=== PATIENT | female | born 1975 | race Caucasian/White ===

== ENCOUNTER 2018-03-20 10:25 | Emergency (ER) | payer OTHER ==
[2018-03-20 10:30] VITALS: RESP 18
[2018-03-20] MEDS ORDERED: SODIUM CHLORIDE 0.9% 1,000 ML IV STA (10:54)
[2018-03-20] MEDS ORDERED: ONDANSETRON 4 MG/2 ML VIAL IVP STA (10:54)
[2018-03-20] MEDS ORDERED: MORPHINE SULFATE 4 MG/ML SYRINGE IV STA ×2 (10:54→12:57)
--- NOTE | 2018-03-20 11:04 | ED ---
General Adult HPI - General Chief complaint: Abdominal Pain Stated complaint: poss kidney stone Time Seen by Provider: 03/20/18 10:34 Source: patient, RN notes reviewed Mode of arrival: wheelchair Limitations: no limitations - History of Present Illness Initial comments: Patient 42-year-old female presented to the emergency room today with a chief complaint of right flank pain over the last 4 days. Patient does admit the pain increased last night. Has not been able to void since 8 PM last night. Experiencing pain in the right flank radiating around to the right side of the abdomen. Patient denies any recent fever, chills, shortness of breath, chest pain, numbness or tingling, dysuria or hematuria, constipation or diarrhea, headaches or visual changes, or any other complaints. - Related Data Previous Rx's Medication Instructions Recorded Hydrocodone/Acetaminophen [[place] 1 each PO Q6HR PRN #12 tab 03/20/18 5-325] Ibuprofen [Motrin] 600 mg PO Q6HR PRN #40 day 03/20/18 Sulfamethox-Tmp 800-160Mg [Bactrim 1 tab PO Q12HR #20 tab 03/20/18 DS 800-160 mg] Tamsulosin [Flomax] 0.4 mg PO DAILY #10 cap 03/20/18 Allergies Allergy/AdvReac Type Severity Reaction Status Date / Time Penicillins Allergy Anaphylaxis Verified 03/20/18 10:30 Review of Systems ROS Statement: Those systems with pertinent positive or pertinent negative responses have been documented in the HPI. ROS Other: All systems not noted in ROS Statement are negative. Past Medical History Past Medical History: Asthma History of Any Multi-Drug Resistant Organisms: None Reported Past Surgical History: No Surgical Hx Reported Past Psychological History: No Psychological Hx Reported Smoking Status: Current every day smoker Past Alcohol Use History: None Reported Past Drug Use History: Marijuana General Exam - General Exam Comments Initial Comments: General: The patient is awake and alert, in mild distress. Eye: Pupils are equal, round and reactive to light, extra-ocular movements are intact. No nystagmus. There is normal conjunctiva bilaterally. No signs of icterus. Ears, nose, mouth and throat: There are moist mucous membranes and no oral lesions. Neck: The neck is supple, there is no tenderness or JVD. Cardiovascular: There is a regular rate and rhythm. No murmur, rub or gallop is appreciated. Respiratory: Lungs are clear to auscultation, respirations are non-labored, breath sounds are equal. No wheezes, stridor, rales, or rhonchi. Gastrointestinal: Abdomen soft on palpation. Mild tenderness diffusely throughout the lower quadrants. Right-sided CVA tenderness. No rebound or guarding. Musculoskeletal: Normal ROM, no tenderness. Sensation intact. Neurological: A&O x 3. CN II-XII intact, There are no obvious motor or sensory deficits. Coordination appears grossly intact. Speech is normal. Skin: Skin is warm and dry and no rashes or lesions are noted. Psychiatric: Cooperative, appropriate mood & affect, normal judgment. Limitations: no limitations Course Vital Signs 03/20/18 03/20/18 03/20/18 10:26 12:23 14:26 Temperature 98.3 F Pulse Rate 96 71 64 Respiratory 18 18 18 Rate Blood Pressure 132/87 133/64 124/79 O2 Sat by Pulse 98 96 97 Oximetry Medical Decision Making - Medical Decision Making Patient's CT the abdomen and pelvis does show a 3 mm stone on the right side. Patient's urinalysis shows a greater than 182 white cells with 7 red. Patient given dose Rocephin here in emergency room. Patient clinically looking well at this time. No fever. No elevated white count. Patient will be discharged home continue on antibiotics, Flomax, pain medication for her symptoms. Advised following up urologist over the next 2 days return if any symptoms increase worsen. - Lab Data Result diagrams: 03/20/18 11:20 03/20/18 11:20 Lab Results 03/20/18 03/20/18 03/20/18 Range/Units 11:20 11:20 11:20 WBC 9.4 (3.8-10.6) k/uL RBC 4.92 (3.80-5.40) m/uL Hgb 14.6 (11.4-16.0) gm/dL Hct 45.9 (34.0-46.0) % MCV 93.3 (80.0-100.0) fL MCH 29.6 (25.0-35.0) pg MCHC 31.7 (31.0-37.0) g/dL RDW 13.5 (11.5-15.5) % Plt Count 215 (150-450) k/uL Neutrophils % 69 % Lymphocytes % 17 % Monocytes % 8 % Eosinophils % 1 % Basophils % 1 % Neutrophils # 6.4 (1.3-7.7) k/uL Lymphocytes # 1.6 (1.0-4.8) k/uL Monocytes # 0.7 (0-1.0) k/uL Eosinophils # 0.1 (0-0.7) k/uL Basophils # 0.1 (0-0.2) k/uL Sodium 138 (137-145) mmol/L Potassium 4.6 (3.5-5.1) mmol/L Chloride 108 H (98-107) mmol/L Carbon Dioxide 24 (22-30) mmol/L Anion Gap 6 mmol/L BUN 12 (7-17) mg/dL Creatinine 0.84 (0.52-1.04) mg/dL Est GFR (CKD-EPI)AfAm >90 (>60 ml/min/1.73 sqM) Est GFR (CKD-EPI)NonAf 87 (>60 ml/min/1.73 sqM) Glucose 91 (74-99) mg/dL Plasma Lactic Acid [place] 0.6 L (0.7-2.0) mmol/L Calcium 8.6 (8.4-10.2) mg/dL Total Bilirubin 0.4 (0.2-1.3) mg/dL AST 62 H (14-36) U/L ALT 56 H (9-52) U/L Alkaline Phosphatase 84 (38-126) U/L Total Protein 6.3 (6.3-8.2) g/dL Albumin 3.2 L (3.5-5.0) g/dL Amylase 37 (30-110) U/L Lipase 54 (23-300) U/L Urine Color Urine Appearance (Clear) Urine pH (5.0-8.0) Ur Specific [place] (1.001-1.035) Urine Protein (Negative) Urine Glucose (UA) (Negative) Urine Ketones (Negative) Urine Blood (Negative) Urine Nitrite (Negative) Urine Bilirubin (Negative) Urine Urobilinogen (<2.0) mg/dL Ur Leukocyte Esterase (Negative) Urine RBC (0-5) /hpf Urine WBC (0-5) /hpf Ur Squamous Epith Cells (0-4) /hpf Urine Bacteria (None) /hpf Urine Mucus (None) /hpf Urine HCG, Qual (Not Detectd) 03/20/18 03/20/18 Range/Units 11:49 13:45 WBC (3.8-10.6) k/uL RBC (3.80-5.40) m/uL Hgb (11.4-16.0) gm/dL Hct (34.0-46.0) % MCV (80.0-100.0) fL MCH (25.0-35.0) pg MCHC (31.0-37.0) g/dL RDW (11.5-15.5) % Plt Count (150-450) k/uL Neutrophils % % Lymphocytes % % Monocytes % % Eosinophils % % Basophils % % Neutrophils # (1.3-7.7) k/uL Lymphocytes # (1.0-4.8) k/uL Monocytes # (0-1.0) k/uL Eosinophils # (0-0.7) k/uL Basophils # (0-0.2) k/uL Sodium (137-145) mmol/L Potassium (3.5-5.1) mmol/L Chloride (98-107) mmol/L Carbon Dioxide (22-30) mmol/L Anion Gap mmol/L BUN (7-17) mg/dL Creatinine (0.52-1.04) mg/dL Est GFR (CKD-EPI)AfAm (>60 ml/min/1.73 sqM) Est GFR (CKD-EPI)NonAf (>60 ml/min/1.73 sqM) Glucose (74-99) mg/dL Plasma Lactic Acid [place] (0.7-2.0) mmol/L Calcium (8.4-10.2) mg/dL Total Bilirubin (0.2-1.3) mg/dL AST (14-36) U/L ALT (9-52) U/L Alkaline Phosphatase (38-126) U/L Total Protein (6.3-8.2) g/dL Albumin (3.5-5.0) g/dL Amylase (30-110) U/L Lipase (23-300) U/L Urine Color Light Yellow Urine Appearance Cloudy H (Clear) Urine pH 6.0 (5.0-8.0) Ur Specific [place] 1.008 (1.001-1.035) Urine Protein 1+ H (Negative) Urine Glucose (UA) Negative (Negative) Urine Ketones Negative (Negative) Urine Blood Moderate H (Negative) Urine Nitrite Negative (Negative) Urine Bilirubin Negative (Negative) Urine Urobilinogen <2.0 (<2.0) mg/dL Ur Leukocyte Esterase Large H (Negative) Urine RBC 7 H (0-5) /hpf Urine WBC >182 H (0-5) /hpf Ur Squamous Epith Cells <1 (0-4) /hpf Urine Bacteria Occasional H (None) /hpf Urine Mucus Rare H (None) /hpf Urine HCG, Qual Not Detected (Not Detectd) Disposition Clinical Impression: Kidney stone Disposition: HOME SELF-CARE Condition: Good Instructions: Kidney Stones (ED) Additional Instructions: Please use medication as discussed. Please follow-up with urologist/family doctor in the next 2 days of symptoms have not improved. Please return to emergency room if the symptoms increase or worsen or for any other concerns. Prescriptions: Hydrocodone/Acetaminophen [[place] 5-325] 1 each PO Q6HR PRN #12 tab PRN Reason: Pain Ibuprofen [Motrin] 600 mg PO Q6HR PRN #40 day PRN Reason: Pain Sulfamethox-Tmp 800-160Mg [Bactrim DS 800-160 mg] 1 tab PO Q12HR #20 tab Tamsulosin [Flomax] 0.4 mg PO DAILY #10 cap Is patient prescribed a controlled substance at d/c from ED?: Yes When asked, does pt state using other controlled substances?: No If prescribed controlled substance>3 days was MAPS reviewed?: Prescribed <3 Days Referrals: None,Stated [Primary Care Provider] - 1-2 days Floyd Whitfield MD [STAFF PHYSICIAN] - 1-2 days Time of Disposition: 15:25
[2018-03-20 11:44] LABS: Basophils # (A) 0.1 k/uL (0-0.2); Basophils % (A) 1 %; Eosinophils # (A) 0.1 k/uL (0-0.7); Eosinophils % (A) 1 %; HCT 45.9 % (34.0-46.0); HGB 14.6 gm/dL (11.4-16.0); Lymphocytes # (A) 1.6 k/uL (1.0-4.8); Lymphocytes % (A) 17 %; MCH 29.6 pg (25.0-35.0); MCHC 31.7 g/dL (31.0-37.0); MCV 93.3 fL (80.0-100.0); Mean Platelet Volume 6.6; Monocytes # (A) 0.7 k/uL (0-1.0); Monocytes % (A) 8 %; Neutrophils # (A) 6.4 k/uL (1.3-7.7); Neutrophils % (A) 69 %; Platelet Count 215 k/uL (150-450); RBC 4.92 m/uL (3.80-5.40); RDW 13.5 % (11.5-15.5); WBC 9.4 k/uL (3.8-10.6)
[2018-03-20 11:51] LABS: ALT 56 U/L (9-52); AST 62 U/L (14-36); Albumin 3.2 g/dL (3.5-5.0); Alkaline Phosphatase 84 U/L (38-126); Amylase 37 U/L (30-110); Anion Gap 6 mmol/L; Blood Urea Nitrogen 12 mg/dL (7-17); Calcium 8.6 mg/dL (8.4-10.2); Carbon Dioxide 24 mmol/L (22-30); Chloride 108 mmol/L (98-107); Glucose 91 mg/dL (74-99); Lipase 54 U/L (23-300); Potassium 4.6 mmol/L (3.5-5.1); Sodium 138 mmol/L (137-145); Total Bilirubin 0.4 mg/dL (0.2-1.3); Total Protein 6.3 g/dL (6.3-8.2)
--- NOTE | 2018-03-20 13:03 | CT ---
EXAMINATION TYPE: CT abdomen pelvis wo con DATE OF EXAM: 03/20/2018 COMPARISON: None HISTORY: Right flank pain. CT DLP: 540 mGycm Examination of the solid and hollow viscera is limited given the lack of contrast. FINDINGS: LUNG BASES: No evidence for nodule. No evidence for infiltrate. LIVER/GB: The liver may be enlarged. The gallbladder is unremarkable. No space-occupying hepatic lesi on. PANCREAS: No pancreatic mass identified. No inflammatory process seen. SPLEEN: Splenic granulomas identified. No evidence for splenomegaly. No intrasplenic lesions seen. ADRENALS: No adrenal nodules identified. No evidence for thickening. KIDNEYS: No evidence for renal mass. 3 mm distal right ureteral calculus resulting in mild right-side d hydroureteronephrosis just beyond the pelvic inlet. No additional calculi seen. Mild right renal ed fadi. BOWEL: Appendix has a normal appearance. No evidence of bowel obstruction. No inflammatory process. Lymph nodes: No evidence for adenopathy greater than 1 cm. Abdominal aorta: Atheromatous changes seen. No evidence for aneurysm. Genital organs: No significant abnormality. Other: No significant abnormality. IMPRESSION: 3mm distal right ureteral calculus resulting in mild right-sided hydroureteronephrosis just beyond t he pelvic inlet.
--- NOTE | 2018-03-20 13:24 | XR ---
EXAMINATION TYPE: XR KUB DATE OF EXAM: 03/20/2018 COMPARISON: NONE HISTORY: Pain TECHNIQUE: Single supine KUB image of the abdomen is obtained FINDINGS: Small bowel demonstrates no evidence for dilatation or air fluid levels. Gas and fecal material is seen in non-distended colon. No convincing evidence for pneumoperitoneum. No unusual calcifications. The lung bases are clear. The osseous structures are intact. IMPRESSION: 1. Overall nonobstructive bowel gas pattern.
[2018-03-20 14:18] LABS: Appearance,Urine Cloudy (Clear); Bacteria,Urine Occasional /hpf; Bilirubin,Urine Negative (Negative); Blood,Urine Moderate (Negative); Color,Urine Light Yellow; Glucose,Urine (UA) Negative (Negative); Ketones,Urine Negative (Negative); Leukocyte Esterase,Urine Large (Negative); Mucus,Urine Rare /hpf; Nitrite,Urine Negative (Negative); Protein,Urine 1+ (Negative); RBC,Urine 7 /hpf (0-5); Specific Gravity,Urine 1.008 (1.001-1.035); Squamous Epithelial Cell,Urine <1 /hpf (0-4); Urobilinogen,Urine <2.0 mg/dL (<2.0); WBC,Urine >182 /hpf (0-5)
[2018-03-20] MEDS ORDERED: KETOROLAC 30 MG/ML 1 ML VIAL IVP STA (14:35)
[2018-03-20] MEDS ORDERED: cefTRIAXone IN SWFI 1,000 MG/10 ML SYRINGE IVP STA (14:58)
[2018-03-20 15:53] VITALS: BP 124/90; PULSE 67; TEMP 98
== END 2018-03-20 15:40 | disposition home or self-care (01) ==
LOC: EC 10:25
DX: N13.2 Hydronephrosis with renal and ureteral calculous obstruction (principal); F17.200 Nicotine dependence, unspecified, uncomplicated; Z79.899 Other long term (current) drug therapy; Z88.0 Allergy status to penicillin
CPT/HCPCS: 51798; 36415; 80053; 82150; 83605; 83690; 85025; 81001; 81025; 74018; 74176; 99284; 96374; 96375 ×3; 96376; 96361 ×2; J2270; J2405; J0696; J1885

== ENCOUNTER 2019-06-30 13:42 | Observation (INO) | payer OTHER ==
[2019-06-30] MEDS ORDERED: SODIUM CHLORIDE 0.9% 500 ML 500 ML IV STA (14:06)
[2019-06-30] MEDS ORDERED: methylPREDNISolone SOD SUCCI 125 MG/2 ML VIAL IV STA (14:06)
[2019-06-30] MEDS ORDERED: IPRATROPIUM 0.5 MG/2.5 ML NEBU INHALATION STA (14:06)
[2019-06-30] MEDS ORDERED: ALBUTEROL NEBULIZED 2.5 MG/3 ML INHALATION STA (14:06)
[2019-06-30 14:47] LABS: Basophils % (A) 0 %; Eosinophils # (A) 0.2 k/uL (0-0.7); Eosinophils % (A) 2 %; HCT 46.4 % (34.0-46.0); HGB 15.5 gm/dL (11.4-16.0); Lymphocytes # (A) 2.3 k/uL (1.0-4.8); Lymphocytes % (A) 27 %; MCH 30.5 pg (25.0-35.0); MCHC 33.3 g/dL (31.0-37.0); MCV 91.4 fL (80.0-100.0); Mean Platelet Volume 8.2; Monocytes # (A) 0.5 k/uL (0-1.0); Monocytes % (A) 5 %; Neutrophils # (A) 5.6 k/uL (1.3-7.7); Neutrophils % (A) 64 %; Platelet Count 286 k/uL (150-450); RBC 5.08 m/uL (3.80-5.40); RDW 12.8 % (11.5-15.5); WBC 8.7 k/uL (3.8-10.6)
[2019-06-30 14:49] LABS: ALT 135 U/L (9-52); AST 148 U/L (14-36); African American GFR (CKD) >90 (>60 ml/min/1.73 sqM); Albumin 3.8 g/dL (3.5-5.0); Alkaline Phosphatase 73 U/L (38-126); Anion Gap 5 mmol/L; Blood Urea Nitrogen 16 mg/dL (7-17); Calcium 9.3 mg/dL (8.4-10.2); Carbon Dioxide 28 mmol/L (22-30); Chloride 105 mmol/L (98-107); Glucose 88 mg/dL (74-99); Magnesium 1.6 mg/dL (1.6-2.3); Non-African American GFR(CKD) >90 (>60 ml/min/1.73 sqM); Sodium 138 mmol/L (137-145); Total Protein 7.1 g/dL (6.3-8.2)
[2019-06-30 14:51] LABS: Potassium 4.7 mmol/L (3.5-5.1)
[2019-06-30 14:52] VITALS: RESP 18
[2019-06-30 15:06] LABS: D-Dimer 0.19 mg/L FEU (<0.60); INR 0.9 (<1.2); Partial Thromboplastin Time 27.2 sec (22.0-30.0); Prothrombin Time 10.2 sec (9.0-12.0)
--- NOTE | 2019-06-30 15:06 | ED ---
General Adult HPI - General Chief complaint: Shortness of Breath Stated complaint: Asthma,R Arm tightness Time Seen by Provider: 06/30/19 13:59 Source: patient, RN notes reviewed, old records reviewed Mode of arrival: ambulatory Limitations: no limitations - History of Present Illness Initial comments: 43-year-old female history of asthma and exposure to secondhand smoke presenting with cough and dyspnea. Patient states she's had dry cough. No fever or chills. She has not had any medication for her asthma and some time. Denies central chest pain. She had an episode of shoulder pain associated with her dyspnea several days ago. Denies abdominal pain. Denies nausea vomiting. Denies lower extremity pain or swelling. No history DVT or PE. - Related Data Previous Rx's Medication Instructions Recorded Hydrocodone/Acetaminophen [[place] 1 each PO Q6HR PRN #12 tab 03/20/18 5-325] Ibuprofen [Motrin] 600 mg PO Q6HR PRN #40 day 03/20/18 Sulfamethox-Tmp 800-160Mg [Bactrim 1 tab PO Q12HR #20 tab 03/20/18 DS 800-160 mg] Tamsulosin [Flomax] 0.4 mg PO DAILY #10 cap 03/20/18 Allergies Allergy/AdvReac Type Severity Reaction Status Date / Time Penicillins Allergy Anaphylaxis Verified 03/20/18 10:30 Review of Systems ROS Statement: Those systems with pertinent positive or pertinent negative responses have been documented in the HPI. ROS Other: All systems not noted in ROS Statement are negative. Past Medical History Past Medical History: Asthma History of Any Multi-Drug Resistant Organisms: None Reported Past Surgical History: No Surgical Hx Reported Past Psychological History: No Psychological Hx Reported Smoking Status: Current every day smoker Past Alcohol Use History: None Reported Past Drug Use History: Marijuana General Exam Limitations: no limitations General appearance: alert, in no apparent distress Head exam: Present: atraumatic, normocephalic Eye exam: Present: normal appearance, PERRL ENT exam: Present: normal exam Neck exam: Present: normal inspection. Absent: tenderness, meningismus Respiratory exam: Present: respiratory distress, wheezes, decreased breath sounds. Absent: accessory muscle use Cardiovascular Exam: Present: regular rate, normal rhythm GI/Abdominal exam: Present: soft. Absent: distended, tenderness, guarding, rebound Extremities exam: Present: normal inspection, normal capillary refill. Absent: pedal edema, calf tenderness Neurological exam: Present: alert, oriented X3, CN II-XII intact. Absent: motor sensory deficit Psychiatric exam: Present: normal affect, normal mood Skin exam: Present: warm, dry, intact. Absent: cyanosis, diaphoretic Course Vital Signs 06/30/19 06/30/19 06/30/19 13:51 14:31 15:07 Temperature 97.9 F Pulse Rate 77 69 Respiratory 19 18 Rate Blood Pressure 135/81 O2 Sat by Pulse 97 Oximetry 06/30/19 06/30/19 15:23 15:54 Temperature Pulse Rate 73 73 Respiratory 18 Rate Blood Pressure 114/66 O2 Sat by Pulse Oximetry EKG Findings - EKG Comments: EKG Findings:: EKG: Normal sinus rhythm rate of 68, KS interval 126, QRS duration 86, QTC 401, no skin T waves are upright, no ST segment elevation. Medical Decision Making - Medical Decision Making 43-year-old with cough and dyspnea. History of asthma. Patient has normal CBC, CMP revealed a mild elevation in both AST and ALT. She has a chest x-ray which is negative for focal disease. Negative troponin, negative d-dimer, nonischemic EKG. I did reevaluate the patient after reviewing labs and she has some very mild right upper quadrant tenderness with deep palpation. Ultrasound will be obtained, this is pending. She has persistent wheezing and mild respiratory distress after the last episode Atrovent. She will be admitted for IV steroids and continued treatment of asthma exacerbation. Admitting physician is Dr. Goss, he will accept admission and will follow-up on ultrasound r kailee. - Lab Data Result diagrams: 06/30/19 14:30 06/30/19 14:30 Lab Results 06/30/19 06/30/19 06/30/19 Range/Units 14:30 14:30 14:30 WBC 8.7 (3.8-10.6) k/uL RBC 5.08 (3.80-5.40) m/uL Hgb 15.5 (11.4-16.0) gm/dL Hct 46.4 H (34.0-46.0) % MCV 91.4 (80.0-100.0) fL MCH 30.5 (25.0-35.0) pg MCHC 33.3 (31.0-37.0) g/dL RDW 12.8 (11.5-15.5) % Plt Count 286 (150-450) k/uL Neutrophils % 64 % Lymphocytes % 27 % Monocytes % 5 % Eosinophils % 2 % Basophils % 0 % Neutrophils # 5.6 (1.3-7.7) k/uL Lymphocytes # 2.3 (1.0-4.8) k/uL Monocytes # 0.5 (0-1.0) k/uL Eosinophils # 0.2 (0-0.7) k/uL Basophils # 0.0 (0-0.2) k/uL PT 10.2 (9.0-12.0) sec INR 0.9 (<1.2) APTT 27.2 (22.0-30.0) sec D-Dimer 0.19 (<0.60) mg/L FEU Sodium 138 (137-145) mmol/L Potassium 4.7 (3.5-5.1) mmol/L Chloride 105 (98-107) mmol/L Carbon Dioxide 28 (22-30) mmol/L Anion Gap 5 mmol/L BUN 16 (7-17) mg/dL Creatinine 0.74 (0.52-1.04) mg/dL Est GFR (CKD-EPI)AfAm >90 (>60 ml/min/1.73 sqM) Est GFR (CKD-EPI)NonAf >90 (>60 ml/min/1.73 sqM) Glucose 88 (74-99) mg/dL Calcium 9.3 (8.4-10.2) mg/dL Magnesium 1.6 (1.6-2.3) mg/dL Total Bilirubin 1.0 (0.2-1.3) mg/dL AST 148 H (14-36) U/L ALT 135 H (9-52) U/L Alkaline Phosphatase 73 (38-126) U/L Troponin I (0.000-0.034) ng/mL NT-Pro-B Natriuret Pep pg/mL Total Protein 7.1 (6.3-8.2) g/dL Albumin 3.8 (3.5-5.0) g/dL 06/30/19 06/30/19 Range/Units 14:30 14:30 WBC (3.8-10.6) k/uL RBC (3.80-5.40) m/uL Hgb (11.4-16.0) gm/dL Hct (34.0-46.0) % MCV (80.0-100.0) fL MCH (25.0-35.0) pg MCHC (31.0-37.0) g/dL RDW (11.5-15.5) % Plt Count (150-450) k/uL Neutrophils % % Lymphocytes % % Monocytes % % Eosinophils % % Basophils % % Neutrophils # (1.3-7.7) k/uL Lymphocytes # (1.0-4.8) k/uL Monocytes # (0-1.0) k/uL Eosinophils # (0-0.7) k/uL Basophils # (0-0.2) k/uL PT (9.0-12.0) sec INR (<1.2) APTT (22.0-30.0) sec D-Dimer (<0.60) mg/L FEU Sodium (137-145) mmol/L Potassium (3.5-5.1) mmol/L Chloride (98-107) mmol/L Carbon Dioxide (22-30) mmol/L Anion Gap mmol/L BUN (7-17) mg/dL Creatinine (0.52-1.04) mg/dL Est GFR (CKD-EPI)AfAm (>60 ml/min/1.73 sqM) Est GFR (CKD-EPI)NonAf (>60 ml/min/1.73 sqM) Glucose (74-99) mg/dL Calcium (8.4-10.2) mg/dL Magnesium (1.6-2.3) mg/dL Total Bilirubin (0.2-1.3) mg/dL AST (14-36) U/L ALT (9-52) U/L Alkaline Phosphatase (38-126) U/L Troponin I <0.012 (0.000-0.034) ng/mL NT-Pro-B Natriuret Pep 399 pg/mL Total Protein (6.3-8.2) g/dL Albumin (3.5-5.0) g/dL Disposition Clinical Impression: Asthma with acute exacerbation Disposition: ADMITTED IP TO THIS [facility] Condition: Stable Is patient prescribed a controlled substance at d/c from ED?: No Referrals: None,Stated [Primary Care Provider] - 1-2 days Decision to Admit Reason: Admit from EC Decision Date: 06/30/19 Decision Time: 16:14
--- NOTE | 2019-06-30 15:51 | XR ---
EXAMINATION TYPE: XR chest 2V DATE OF EXAM: 06/30/2019 COMPARISON: None INDICATION: Difficulty breathing history of asthma TECHNIQUE: Frontal and lateral views of the chest are obtained. FINDINGS: The heart size is normal. The pulmonary vasculature is normal. The lungs are clear. IMPRESSION: 1. No acute pulmonary process.
[2019-06-30] MEDS ORDERED: IPRATROPIUM-ALBUTEROL 3 ML NEB INHALATION PRN (16:10)
--- NOTE | 2019-06-30 17:09 | P.HPIM ---
History of Present Illness 43-year-old pleasant female came in with complaints of shortness of breath found to have wheezing significant improved after the breathing treatments and steroids. Patient also complaining of right upper as well as lower quadrant a bdominal pain radiating to the left shoulder blade area patient does have mildly elevated liver enzymes patient is comparing of dry cough denied any fever chills denied any flulike symptoms. Patient does have history of asthma diagnosed when she was 8 and patient appears to have chronic moderate intermittent asthma. Chest x-ray did not show any pneumonic process. Review of Systems REVIEW OF SYSTEMS: CONSTITUTIONAL: No fever, no malaise, no fatigue. HEENT: No recent visual problems or hearing problems. Denied any sore throat. CARDIOVASCULAR: No chest pain, orthopnea, PND, no palpitations, no syncope. PULMONARY: , no hemoptysis. GASTROINTESTINAL: No diarrhea, NEUROLOGICAL: No headaches, no weakness, no numbness. HEMATOLOGICAL: Denies any bleeding or petechiae. GENITOURINARY: Denies any burning micturition, frequency, or urgency. MUSCULOSKELETAL/RHEUMATOLOGICAL: Denies any joint pain, swelling, or any muscle pain. ENDOCRINE: Denies any polyuria or polydipsia. The rest of the 14-point review of systems is negative. Past Medical History Past Medical History: Asthma History of Any Multi-Drug Resistant Organisms: None Reported Past Surgical History: No Surgical Hx Reported Past Psychological History: No Psychological Hx Reported Smoking Status: Current every day smoker Past Alcohol Use History: None Reported Past Drug Use History: Marijuana Medications and Allergies Home Medications Medication Instructions Recorded Confirmed Type No Known Home Medications 06/30/19 06/30/19 History Allergies Allergy/AdvReac Type Severity Reaction Status Date / Time Penicillins Allergy Anaphylaxis Verified 06/30/19 16:37 Physical Exam Vitals: Vital Signs Temp Pulse Resp BP Pulse Ox 06/30/19 16:49 80 18 124/79 97 06/30/19 15:54 73 18 114/66 06/30/19 15:23 73 06/30/19 15:07 69 06/30/19 14:31 18 06/30/19 13:51 97.9 F 77 19 135/81 97 Intake and Output 06/30/19 06/30/19 06/30/19 06:59 14:59 22:59 Other: Weight 63.276 kg PHYSICAL EXAMINATION: GENERAL: The patient is alert and oriented x3, not in any acute distress. Well developed, well nourished. HEENT: Pupils are round and equally reacting to light. EOMI. No scleral icterus. No conjunctival pallor. Normocephalic, atraumatic. No pharyngeal erythema. No thyromegaly. CARDIOVASCULAR: S1 and S2 present. No murmurs, rubs, or gallops. PULMONARY: Diffuse rhonchi bilaterally ABDOMEN: Patient does have pain in the right upper as well as lower abdominal quadrants unsure about Mir's sign but patient does have tenderness in the right upper quadrant MUSCULOSKELETAL: No joint swelling or deformity. EXTREMITIES: No cyanosis, clubbing, or pedal edema. NEUROLOGICAL: Gross neurological examination did not reveal any focal deficits. SKIN: No rashes. Results CBC & Chem 7: 06/30/19 14:30 06/30/19 14:30 Labs: Abnormal Lab Results - Last 24 Hours (Table) 06/30/19 06/30/19 Range/Units 14:30 14:30 Hct 46.4 H (34.0-46.0) % AST 148 H (14-36) U/L ALT 135 H (9-52) U/L Assessment and Plan Plan: -Acute asthma exacerbation: Patient will be on the IV steroids for today can be switched to oral tomorrow. Patient does have asthmatic bronchitis and not believe will require antibiotics and medics were discontinued -Right upper quadrant abdominal pain along with tenderness clinically definitely appears to have cholelithiasis we'll obtain ultrasound of the liver gallbladder cholecystitis cannot be ruled out although patient doesn't have any fever or leukocytosis will await for the ultrasound of the abdomen and also obtain hepatitis panel -Remote history of nicotine use -DVT prophylaxis early ambulation and GI prophylaxis with Protonix
[2019-06-30] MEDS ORDERED: INFLUENZA VACCINE (6 MOS+) 60 MCG/0.5 ML SYRINGE IM ONE (17:32)
[2019-06-30] MEDS: PANTOPRAZOLE 40 MG/10 ML VIAL IVP SCH (17:37)
[2019-06-30] MEDS: MORPHINE SULFATE 4 MG/ML SYRINGE IVP PRN ×2 (17:37→22:11)
[2019-06-30] MEDS ORDERED: methylPREDNISolone SOD SUCCI 125 MG/2 ML VIAL IV SCH (18:00)
--- NOTE | 2019-06-30 18:35 | US ---
EXAMINATION TYPE: US gallbladder DATE OF EXAM: 06/30/2019 COMPARISON: NONE CLINICAL HISTORY: pain. Pain EXAM MEASUREMENTS: Liver Length: 15.3 cm Gallbladder Wall: .2 cm CBD: .3 cm Right Kidney: 9.3 x 3.8 x 3.8 cm Pancreas: wnl Liver: wnl Gallbladder: No stones seen Evidence for sonographic Mir's sign: No CBD: wnl Right Kidney: wnl IMPRESSION: Normal exam. No gallstones or dilated ducts.
[2019-06-30] MEDS: methylPREDNISolone SOD SUCCI 40 MG/ML 1 ML VIAL IV SCH (20:00)
[2019-06-30] MEDS: IPRATROPIUM-ALBUTEROL 3 ML NEB INHALATION SCH (21:35)
[2019-07-01] MEDS ORDERED: methylPREDNISolone SOD SUCCI 40 MG/ML 1 ML VIAL IV SCH
[2019-07-01 01:53] LABS: Hepatitis A Antibody IgM Non-Reactive (Non-Reactive); Hepatitis B Core IgM Non-Reactive (Non-Reactive); Hepatitis B Surface Antigen Non-Reactive (Non-Reactive); Hepatitis C IgG Antibody Reactive (Non-Reactive)
[2019-07-01] MEDS: MORPHINE SULFATE 4 MG/ML SYRINGE IVP PRN ×3 (02:10→09:27)
[2019-07-01 06:35] LABS: Glucose,Whole Blood 141 mg/dL (75-99)
[2019-07-01 07:51] VITALS: BP 124/74; PULSE 72; TEMP 97.6
[2019-07-01] MEDS: IPRATROPIUM-ALBUTEROL 3 ML NEB INHALATION SCH ×2 (08:03→11:19)
[2019-07-01] MEDS: INSULIN ASPART (NovoLOG) 100 UNIT/ML VIAL SQ SCH ×2 (08:09→12:00)
[2019-07-01] MEDS ORDERED: AZITHROMYCIN 500 MG TAB PO SCH (09:00)
[2019-07-01] MEDS: methylPREDNISolone SOD SUCCI 40 MG/ML 1 ML VIAL IV SCH (09:27)
[2019-07-01] MEDS: PANTOPRAZOLE 40 MG/10 ML VIAL IVP SCH (09:27)
[2019-07-01 11:46] LABS: Glucose,Whole Blood 124 mg/dL (75-99)
--- NOTE | 2019-07-01 16:16 | P.DS ---
Providers Date of admission: 06/30/19 16:10 Attending physician: Emilia Goss Primary care physician: Stated None Hospital Course: Patient left AMA Patient Condition at Discharge: Stable Plan - Discharge Summary Discharge Rx Participant: Yes New Discharge Prescriptions: No Action No Known Home Medications Discharge Medication List No Known Home Medications 06/30/19 [History] Follow up Appointment(s)/Referral(s): None,Stated [Primary Care Provider] - 1-2 days Discharge Disposition: Left Against Medical Advice
[2019-07-02] MEDS ORDERED: PANTOPRAZOLE 40 MG TABLET PO SCH (07:30)
== END 2019-07-01 13:20 | disposition left against medical advice (07) ==
LOC: EC 13:42 → 1SOBS 16:10
PROVIDERS: ADMIT Internal Medicine; ATTEND Internal Medicine
DX: J45.21 Mild intermittent asthma with (acute) exacerbation (principal); Z77.22 Contact with and (suspected) exposure to environmental tobacco smoke (acute) (chronic); Z53.29 Procedure and treatment not carried out because of patient's decision for other reasons; R05 Cough; R74.8 Abnormal levels of other serum enzymes; R10.11 Right upper quadrant pain; Z79.899 Other long term (current) drug therapy; Z88.0 Allergy status to penicillin
CPT/HCPCS: 96376 ×2; 96361; 96374; 96375; 99285; 36415; 94640 ×2; 93005; 85379; 83880; 80053; 80074; 83735; 84484; 85025; 85610; 85730; 71046; 76705; G0378 ×2; J2270 ×2; J2920 ×2; J2930; C9113 ×2

== ENCOUNTER 2019-09-08 02:00 | Emergency (ER) | payer OTHER ==
[2019-09-08 02:09] VITALS: TEMP 98
[2019-09-08] MEDS ORDERED: IPRATROPIUM-ALBUTEROL 3 ML NEB INHALATION STA (02:31)
[2019-09-08] MEDS ORDERED: ALBUTEROL NEB (CONC) 2.5 MG/0.5 ML INHALATION STA (02:31)
[2019-09-08] MEDS ORDERED: methylPREDNISolone SOD SUCCI 125 MG/2 ML VIAL IM ONE (02:31)
--- NOTE | 2019-09-08 02:51 | XR ---
EXAMINATION TYPE: XR chest 2V DATE OF EXAM: 09/08/2019 COMPARISON: 06/30/2019 HISTORY: Difficulty breathing TECHNIQUE: FINDINGS: Heart and mediastinum are normal. Lungs are clear. Diaphragm is normal. Bony thorax appears normal. IMPRESSION: Normal chest. No change.
--- NOTE | 2019-09-08 03:34 | ED ---
SOB HPI - General Chief Complaint: Shortness of Breath Stated Complaint: Diff Breathing Time Seen by Provider: 09/08/19 02:23 Source: patient, family Mode of arrival: ambulatory Limitations: no limitations - History of Present Illness Initial Comments: 43-year-old female patient presents to the emergency department today for evaluation of shortness of breath and wheezing. Patient states she has a history of asthma. States that she recently moved from [place] and does not have any of her usual medications. Patient states that she has some shortness of breath on a daily basis, it seems to worsen at night. Patient states she is usually able to get her self to go back to sleep but tonight was unable to do so. Patient states she has been wheezing. She does report a mild coughand production. Denies any fever or chills. Denies any nasal congestion or sore throat. Denies any chest pain or tightness. Patient denies any recent rash, abdominal pain, nausea, vomiting, diarrhea, constipation, back pain, numbness, tingling, dizziness, weakness, hematuria, dysuria, urinary urgency, urinary frequency, headache, visual changes, or any other complaints. - Related Data Previous Rx's Medication Instructions Recorded Albuterol Sulfate [Proair Hfa] 1 - 2 puff INHALATION Q6HR PRN #1 09/08/19 inhaler predniSONE 50 mg PO DAILY #5 tablet 09/08/19 Allergies Allergy/AdvReac Type Severity Reaction Status Date / Time Penicillins Allergy Anaphylaxis Verified 09/08/19 02:09 Review of Systems ROS Statement: Those systems with pertinent positive or pertinent negative responses have been documented in the HPI. ROS Other: All systems not noted in ROS Statement are negative. Past Medical History Past Medical History: Asthma History of Any Multi-Drug Resistant Organisms: None Reported Past Surgical History: No Surgical Hx Reported Past Anesthesia/Blood Transfusion Reactions: No Reported Reaction Past Psychological History: No Psychological Hx Reported Smoking Status: Former smoker Past Alcohol Use History: None Reported Past Drug Use History: Marijuana General Exam Limitations: no limitations General appearance: alert, in no apparent distress, other (This is a well- developed, well-nourished adult female patient in no acute distress. Vital signs upon presentation are temperature 98.0F, pulse 76, respirations 20, blood pressure 154/76, pulse ox 96% on room air.) Eye exam: Present: normal appearance, PERRL, EOMI. Absent: scleral icterus, conjunctival injection, periorbital swelling ENT exam: Present: normal exam, normal oropharynx, mucous membranes moist Respiratory exam: Present: wheezes (Tight expiratory wheezing noted in the posterior lung perez), other (No tachypnea, no abdominal accessory muscle use, no respiratory distress). Absent: normal lung sounds bilaterally, respiratory distress, rales, rhonchi, stridor Cardiovascular Exam: Present: regular rate, normal rhythm, normal heart sounds. Absent: systolic murmur, diastolic murmur, rubs, gallop, clicks GI/Abdominal exam: Present: soft, normal bowel sounds. Absent: distended, tenderness, guarding, rebound, rigid Neurological exam: Present: alert, oriented X3, CN II-XII intact Psychiatric exam: Present: normal affect, normal mood Skin exam: Present: warm, dry, intact, normal color. Absent: rash Course Vital Signs 09/08/19 09/08/19 09/08/19 02:05 02:24 03:14 Temperature 98 F Pulse Rate 76 76 Respiratory 20 22 Rate Blood Pressure 154/76 O2 Sat by Pulse 96 Oximetry 09/08/19 09/08/19 03:25 03:42 Temperature Pulse Rate 84 85 Respiratory 18 Rate Blood Pressure 128/78 O2 Sat by Pulse 96 Oximetry Medical Decision Making - Medical Decision Making 43-year-old female patient presented to the emergency department today for evaluation of shortness of breath and wheezing. Physical examination did reveal tight expiratory wheezing in the posterior lung perez. Chest x-ray showed no acute cardiopulmonary process. Patient does have a history of asthma, this does seem to be an exacerbation. Oxygen saturation is satisfactory. She appears to be in no respiratory distress. Resting comfortably in bed. We'll do a burst dose of steroids and give prescription for pro-air. She is instructed to use his 2 puffs every 4-6 hours. She is instructed to follow up with the primary care physician for recheck in 1-2 days, one has been recommended to her. Return parameters were discussed in detail. She verbalizes understanding and agrees with this plan. - Radiology Data Radiology results: report reviewed, image reviewed Two-view x-ray of the chest is obtained. Report was reviewed in its entirety. Impression by Dr. Alvarado shows normal chest. No change Disposition Clinical Impression: Asthma exacerbation Disposition: HOME SELF-CARE Condition: Good Instructions (If sedation given, give patient instructions): Asthma (ED) Additional Instructions: Take medication as directed. Follow-up with the primary care physician for recheck as soon as possible. Return to the emergency department immediately for any new, worsening, or concerning symptoms. Prescriptions: predniSONE 50 mg PO DAILY #5 tablet Albuterol Sulfate [Proair Hfa] 1 - 2 puff INHALATION Q6HR PRN #1 inhaler PRN Reason: Shortness Of Breath Is patient prescribed a controlled substance at d/c from ED?: No Referrals: Miles Pierre MD [STAFF PHYSICIAN] - 1-2 days Time of Disposition: 03:34
[2019-09-08 03:45] VITALS: BP 128/78; PULSE 85; RESP 18
== END 2019-09-08 03:50 | disposition home or self-care (01) ==
LOC: EC 02:00
DX: J45.901 Unspecified asthma with (acute) exacerbation (principal); Z87.891 Personal history of nicotine dependence; Z88.0 Allergy status to penicillin
CPT/HCPCS: 94640; 71046; 99285; 96372; J2930

== ENCOUNTER 2019-09-27 19:26 | Observation (INO) | payer OTHER ==
[2019-09-27] MEDS ORDERED: ALBUTEROL NEBULIZED 2.5 MG/3 ML INHALATION STA (19:37)
[2019-09-27] MEDS ORDERED: methylPREDNISolone SOD SUCCI 125 MG/2 ML VIAL IV STA (19:37)
[2019-09-27] MEDS ORDERED: SODIUM CHLORIDE 0.9% 1,000 ML IV STA (19:37)
[2019-09-27] MEDS ORDERED: IPRATROPIUM 0.5 MG/2.5 ML NEBU INHALATION STA (19:37)
[2019-09-27 20:00] LABS: Basophils % (A) 0 %; Eosinophils # (A) 0.3 k/uL (0-0.7); Eosinophils % (A) 3 %; HCT 48.2 % (34.0-46.0); Lymphocytes % (A) 36 %; MCH 30.4 pg (25.0-35.0); MCHC 33.2 g/dL (31.0-37.0); MCV 91.7 fL (80.0-100.0); Mean Platelet Volume 8.1; Monocytes # (A) 0.6 k/uL (0-1.0); Monocytes % (A) 6 %; Neutrophils # (A) 5.7 k/uL (1.3-7.7); Neutrophils % (A) 52 %; Platelet Count 293 k/uL (150-450); RBC 5.26 m/uL (3.80-5.40); RDW 12.8 % (11.5-15.5)
[2019-09-27] MEDS ORDERED: ONDANSETRON 4 MG/2 ML VIAL IVP STA (20:01)
--- NOTE | 2019-09-27 20:07 | XR ---
EXAMINATION TYPE: XR chest 2V DATE OF EXAM: 09/27/2019 COMPARISON: 09/08/2019 HISTORY: Short of breath TECHNIQUE: FINDINGS: Heart and mediastinum are normal. Lungs are clear. Diaphragm is normal. Bony thorax appears normal. There are chest leads. IMPRESSION: Normal chest. No change.
[2019-09-27 20:09] LABS: ALT 197 U/L (4-34); AST 233 U/L (14-36); African American GFR (CKD) >90 (>60 ml/min/1.73 sqM); Alkaline Phosphatase 130 U/L (38-126); Anion Gap 7 mmol/L; Blood Urea Nitrogen 11 mg/dL (7-17); Calcium 9.5 mg/dL (8.4-10.2); Carbon Dioxide 20 mmol/L (22-30); Chloride 107 mmol/L (98-107); Glucose 113 mg/dL (74-99); Magnesium 1.6 mg/dL (1.6-2.3); Non-African American GFR(CKD) >90 (>60 ml/min/1.73 sqM); Potassium 4.5 mmol/L (3.5-5.1); Sodium 134 mmol/L (137-145); Total Bilirubin 0.7 mg/dL (0.2-1.3); Total Protein 7.3 g/dL (6.3-8.2)
[2019-09-27 20:13] LABS: D-Dimer <0.17 mg/L FEU (<0.60); Partial Thromboplastin Time 24.5 sec (22.0-30.0); Prothrombin Time 9.9 sec (9.0-12.0)
--- NOTE | 2019-09-27 20:14 | ED ---
General Adult HPI - General Chief complaint: Shortness of Breath Stated complaint: VALENTE Time Seen by Provider: 09/27/19 19:33 Source: patient, RN notes reviewed, old records reviewed Mode of arrival: ambulatory Limitations: no limitations - History of Present Illness Initial comments: 34-year-old female presenting with dyspnea, cough, nausea vomiting and abdominal pain. Patient's symptoms began quite suddenly. She is in moderate respiratory distress, history of asthma. She states she is having an asthma attack. She'll 2 episodes of vomiting and right upper quadrant abdominal pain which began suddenly 2 hours prior to arrival. No diarrhea. No lower abdominal pain. No fever or chills. History of asthma, no history of CAD, no history DVT or PE. - Related Data Previous Rx's Medication Instructions Recorded Albuterol Sulfate [Proair Hfa] 1 - 2 puff INHALATION Q6HR PRN #1 09/08/19 inhaler predniSONE 50 mg PO DAILY #5 tablet 09/08/19 Allergies Allergy/AdvReac Type Severity Reaction Status Date / Time Penicillins Allergy Anaphylaxis Verified 09/08/19 02:09 Review of Systems ROS Statement: Those systems with pertinent positive or pertinent negative responses have been documented in the HPI. ROS Other: All systems not noted in ROS Statement are negative. Past Medical History Past Medical History: Asthma History of Any Multi-Drug Resistant Organisms: None Reported Past Surgical History: No Surgical Hx Reported Past Anesthesia/Blood Transfusion Reactions: No Reported Reaction Past Psychological History: No Psychological Hx Reported Smoking Status: Current every day smoker Past Alcohol Use History: Rare Past Drug Use History: Marijuana General Exam Limitations: no limitations General appearance: alert, in no apparent distress Head exam: Present: atraumatic, normocephalic Eye exam: Present: normal appearance, PERRL ENT exam: Present: normal exam Neck exam: Present: normal inspection. Absent: tenderness, meningismus Respiratory exam: Present: respiratory distress, wheezes Cardiovascular Exam: Present: normal rhythm, tachycardia GI/Abdominal exam: Present: soft, tenderness (Minimal right upper quadrant tenderness palpation). Absent: distended Extremities exam: Present: normal inspection, full ROM Back exam: Present: normal inspection, full ROM Neurological exam: Present: alert, oriented X3, CN II-XII intact. Absent: motor sensory deficit Psychiatric exam: Present: normal affect, normal mood Skin exam: Present: warm, dry, intact. Absent: cyanosis, diaphoretic Course Vital Signs 09/27/19 09/27/19 09/27/19 19:28 20:07 20:33 Temperature 98.1 F Pulse Rate 136 H 64 78 Respiratory 30 H Rate Blood Pressure 148/73 O2 Sat by Pulse 99 Oximetry EKG Findings - EKG Comments: EKG Findings:: EKG: Normal sinus rhythm, rate of 74, IL interval 120, QRS duration 78, QTC 417, no ST segment elevation Medical Decision Making - Medical Decision Making 44-year-old female history of asthma presenting with severe dyspnea, tachycardia. Wheezing bilaterally. Additionally patient has some right upper quadrant abdominal pain and vomiting. She has a mild transaminitis and elevation in alkaline phosphatase. Ultrasound is performed this is negative for acute cholecystitis, no acute findings. Chest x-ray negative for focal pneumonia. Mild leukocytosis. Remainder laboratory testing is unremarkable. After initial albuterol, Atrovent, IV steroids, patient has persistent wheezing and moderate respiratory distress. She will be admitted for asthma exacerbation. Case is discussed with Dr. Lema will accept admission. - Lab Data Result diagrams: 09/27/19 19:50 09/27/19 19:50 Lab Results 09/27/19 09/27/19 09/27/19 Range/Units 19:50 19:50 19:50 WBC 11.0 H (3.8-10.6) k/uL RBC 5.26 (3.80-5.40) m/uL Hgb 16.0 (11.4-16.0) gm/dL Hct 48.2 H (34.0-46.0) % MCV 91.7 (80.0-100.0) fL MCH 30.4 (25.0-35.0) pg MCHC 33.2 (31.0-37.0) g/dL RDW 12.8 (11.5-15.5) % Plt Count 293 (150-450) k/uL Neutrophils % 52 % Lymphocytes % 36 % Monocytes % 6 % Eosinophils % 3 % Basophils % 0 % Neutrophils # 5.7 (1.3-7.7) k/uL Lymphocytes # 4.0 (1.0-4.8) k/uL Monocytes # 0.6 (0-1.0) k/uL Eosinophils # 0.3 (0-0.7) k/uL Basophils # 0.0 (0-0.2) k/uL PT 9.9 (9.0-12.0) sec INR 1.0 (<1.2) APTT 24.5 (22.0-30.0) sec D-Dimer <0.17 (<0.60) mg/L FEU Sodium 134 L (137-145) mmol/L Potassium 4.5 (3.5-5.1) mmol/L Chloride 107 (98-107) mmol/L Carbon Dioxide 20 L (22-30) mmol/L Anion Gap 7 mmol/L BUN 11 (7-17) mg/dL Creatinine 0.76 (0.52-1.04) mg/dL Est GFR (CKD-EPI)AfAm >90 (>60 ml/min/1.73 sqM) Est GFR (CKD-EPI)NonAf >90 (>60 ml/min/1.73 sqM) Glucose 113 H (74-99) mg/dL Plasma Lactic Acid Zuhair (0.7-2.0) mmol/L Calcium 9.5 (8.4-10.2) mg/dL Magnesium 1.6 (1.6-2.3) mg/dL Total Bilirubin 0.7 (0.2-1.3) mg/dL AST 233 H (14-36) U/L ALT 197 H (4-34) U/L Alkaline Phosphatase 130 H (38-126) U/L Troponin I (0.000-0.034) ng/mL Total Protein 7.3 (6.3-8.2) g/dL Albumin 4.0 (3.5-5.0) g/dL Urine Color Urine Appearance (Clear) Urine pH (5.0-8.0) Ur Specific [place] (1.001-1.035) Urine Protein (Negative) Urine Glucose (UA) (Negative) Urine Ketones (Negative) Urine Blood (Negative) Urine Nitrite (Negative) Urine Bilirubin (Negative) Urine Urobilinogen (<2.0) mg/dL Ur Leukocyte Esterase (Negative) Urine RBC (0-5) /hpf Urine WBC (0-5) /hpf Ur Squamous Epith Cells (0-4) /hpf Urine Bacteria (None) /hpf Urine Mucus (None) /hpf Urine HCG, Qual (Not Detectd) 09/27/19 09/27/19 09/27/19 Range/Units 19:50 19:50 20:40 WBC (3.8-10.6) k/uL RBC (3.80-5.40) m/uL Hgb (11.4-16.0) gm/dL Hct (34.0-46.0) % MCV (80.0-100.0) fL MCH (25.0-35.0) pg MCHC (31.0-37.0) g/dL RDW (11.5-15.5) % Plt Count (150-450) k/uL Neutrophils % % Lymphocytes % % Monocytes % % Eosinophils % % Basophils % % Neutrophils # (1.3-7.7) k/uL Lymphocytes # (1.0-4.8) k/uL Monocytes # (0-1.0) k/uL Eosinophils # (0-0.7) k/uL Basophils # (0-0.2) k/uL PT (9.0-12.0) sec INR (<1.2) APTT (22.0-30.0) sec D-Dimer (<0.60) mg/L FEU Sodium (137-145) mmol/L Potassium (3.5-5.1) mmol/L Chloride (98-107) mmol/L Carbon Dioxide (22-30) mmol/L Anion Gap mmol/L BUN (7-17) mg/dL Creatinine (0.52-1.04) mg/dL Est GFR (CKD-EPI)AfAm (>60 ml/min/1.73 sqM) Est GFR (CKD-EPI)NonAf (>60 ml/min/1.73 sqM) Glucose (74-99) mg/dL Plasma Lactic Acid Zuhair 1.6 (0.7-2.0) mmol/L Calcium (8.4-10.2) mg/dL Magnesium (1.6-2.3) mg/dL Total Bilirubin (0.2-1.3) mg/dL AST (14-36) U/L ALT (4-34) U/L Alkaline Phosphatase (38-126) U/L Troponin I <0.012 (0.000-0.034) ng/mL Total Protein (6.3-8.2) g/dL Albumin (3.5-5.0) g/dL Urine Color Yellow Urine Appearance Cloudy H (Clear) Urine pH 8.5 H (5.0-8.0) Ur Specific [place] 1.016 (1.001-1.035) Urine Protein Negative (Negative) Urine Glucose (UA) Negative (Negative) Urine Ketones Negative (Negative) Urine Blood Negative (Negative) Urine Nitrite Negative (Negative) Urine Bilirubin Negative (Negative) Urine Urobilinogen 2.0 (<2.0) mg/dL Ur Leukocyte Esterase Negative (Negative) Urine RBC <1 (0-5) /hpf Urine WBC 1 (0-5) /hpf Ur Squamous Epith Cells 4 (0-4) /hpf Urine Bacteria Rare H (None) /hpf Urine Mucus Rare H (None) /hpf Urine HCG, Qual (Not Detectd) 09/27/19 Range/Units 20:40 WBC (3.8-10.6) k/uL RBC (3.80-5.40) m/uL Hgb (11.4-16.0) gm/dL Hct (34.0-46.0) % MCV (80.0-100.0) fL MCH (25.0-35.0) pg MCHC (31.0-37.0) g/dL RDW (11.5-15.5) % Plt Count (150-450) k/uL Neutrophils % % Lymphocytes % % Monocytes % % Eosinophils % % Basophils % % Neutrophils # (1.3-7.7) k/uL Lymphocytes # (1.0-4.8) k/uL Monocytes # (0-1.0) k/uL Eosinophils # (0-0.7) k/uL Basophils # (0-0.2) k/uL PT (9.0-12.0) sec INR (<1.2) APTT (22.0-30.0) sec D-Dimer (<0.60) mg/L FEU Sodium (137-145) mmol/L Potassium (3.5-5.1) mmol/L Chloride (98-107) mmol/L Carbon Dioxide (22-30) mmol/L Anion Gap mmol/L BUN (7-17) mg/dL Creatinine (0.52-1.04) mg/dL Est GFR (CKD-EPI)AfAm (>60 ml/min/1.73 sqM) Est GFR (CKD-EPI)NonAf (>60 ml/min/1.73 sqM) Glucose (74-99) mg/dL Plasma Lactic Acid Zuhair (0.7-2.0) mmol/L Calcium (8.4-10.2) mg/dL Magnesium (1.6-2.3) mg/dL Total Bilirubin (0.2-1.3) mg/dL AST (14-36) U/L ALT (4-34) U/L Alkaline Phosphatase (38-126) U/L Troponin I (0.000-0.034) ng/mL Total Protein (6.3-8.2) g/dL Albumin (3.5-5.0) g/dL Urine Color Urine Appearance (Clear) Urine pH (5.0-8.0) Ur Specific [place] (1.001-1.035) Urine Protein (Negative) Urine Glucose (UA) (Negative) Urine Ketones (Negative) Urine Blood (Negative) Urine Nitrite (Negative) Urine Bilirubin (Negative) Urine Urobilinogen (<2.0) mg/dL Ur Leukocyte Esterase (Negative) Urine RBC (0-5) /hpf Urine WBC (0-5) /hpf Ur Squamous Epith Cells (0-4) /hpf Urine Bacteria (None) /hpf Urine Mucus (None) /hpf Urine HCG, Qual Not Detected (Not Detectd) Disposition Clinical Impression: Asthma with acute exacerbation Disposition: ADMITTED IP TO THIS HOSP Condition: Stable Is patient prescribed a controlled substance at d/c from ED?: No Referrals: None,Stated [Primary Care Provider] - 1-2 days Decision to Admit Reason: Admit from EC Decision Date: 09/27/19 Decision Time: 21:38
--- NOTE | 2019-09-27 21:24 | US ---
EXAMINATION TYPE: US gallbladder DATE OF EXAM: 09/27/2019 COMPARISON: CLINICAL HISTORY: Transaminitis. Pain. EXAM MEASUREMENTS: Liver Length: 17.3 cm Gallbladder Wall: 0.3 cm CBD: 0.3 cm Right Kidney: 9.4 x 3.8 x 3.8 cm Pancreas: wnl Liver: wnl Gallbladder: wnl Evidence for sonographic Mir's sign: neg CBD: wnl Right Kidney: No hydronephrosis or masses seen IMPRESSION: Negative exam. No gallstones or dilated ducts.
[2019-09-27 21:36] LABS: Appearance,Urine Cloudy (Clear); Bacteria,Urine Rare /hpf; Bilirubin,Urine Negative (Negative); Blood,Urine Negative (Negative); Color,Urine Yellow; Glucose,Urine (UA) Negative (Negative); Ketones,Urine Negative (Negative); Leukocyte Esterase,Urine Negative (Negative); Mucus,Urine Rare /hpf; Nitrite,Urine Negative (Negative); PH, Urine 8.5 (5.0-8.0); Protein,Urine Negative (Negative); RBC,Urine <1 /hpf (0-5); Specific Gravity,Urine 1.016 (1.001-1.035); Squamous Epithelial Cell,Urine 4 /hpf (0-4); WBC,Urine 1 /hpf (0-5)
[2019-09-27] MEDS ORDERED: HYDROmorphone 0.5 MG/0.5 ML SYRINGE IVP STA (22:05)
--- NOTE | 2019-09-27 22:30 | P.HPIM ---
History of Present Illness H&P Date: 09/27/19 Patient is a 44-year-old female with a PMH of asthma and tobacco abuse who presented to the ED with complaints of gradually worsening shortness of breath. The patient notes that for the past 2-3 days, her breathing has been somewhat worsening, with associated nonproductive cough. She also reports that earlier today, she experienced a right upper quadrant abdominal pain, sharp in nature, nonradiating, 8 out of 10, with associated vomiting. She denied hematemesis, though endorsed 6 episodes of vomiting, nonbilious. She denied any obvious alleviating or exacerbating features. She denied any history of gallstones or liver issues. The patient has a long-standing history of asthma with multiple presentations to the ED. The patient notes that she is about to run out of her albuterol inhaler, since she recently moved to the area from [place] and does not have a PCP as of yet. She denied chest pain, fever, chills, dizziness, or diarrhea. She also denied recent travel or sick contacts. At time of interview, she reported continued right quadrant pain, 6 out of 10. She underwent an extensive evaluation in the emergency room with a chest x-ray that was unremarkable, a gallbladder ultrasound that was unremarkable without evidence of gallstones, and EKG showing normal sinus rhythm at [address]/T-wave changes noted. Upon presentation, the patient's vitals were BP 140/73, pulse 136, temperature 98.1, and SpO2 99% on room air. Laboratory evaluation revealed WBC count of 11.0, AST 233, ALT 197, troponin less than 0.012, alkaline phosphatase 130, UA unremarkable, BUN 11, and a creatinine of 0.76. The patient was given IV Solu-Medrol and albuterol inhaler and was admitted to the medicine service for further management. Review of Systems Pertinent positives and negatives as discussed in HPI, a complete review of systems was performed and all other systems are negative. Past Medical History Past Medical History: Asthma History of Any Multi-Drug Resistant Organisms: None Reported Past Surgical History: No Surgical Hx Reported Past Anesthesia/Blood Transfusion Reactions: No Reported Reaction Past Psychological History: No Psychological Hx Reported Smoking Status: Current every day smoker Past Alcohol Use History: Rare Past Drug Use History: Marijuana Medications and Allergies Home Medications Medication Instructions Recorded Confirmed Type Albuterol Sulfate [Proair Hfa] 1 - 2 puff INHALATION Q6HR PRN #1 09/08/19 09/27/19 Rx inhaler predniSONE 50 mg PO DAILY #5 tablet 09/08/19 09/27/19 Rx Nicotine 7Mg/24Hr Patch [Habitrol] 1 mg TRANSDERM DAILY 09/27/19 09/27/19 History Allergies Allergy/AdvReac Type Severity Reaction Status Date / Time Penicillins Allergy Anaphylaxis Verified 09/08/19 02:09 Physical Exam Vitals: Vital Signs Temp Pulse Resp BP Pulse Ox 09/27/19 22:03 98.2 F 75 18 115/75 96 09/27/19 21:38 82 18 117/75 94 L 09/27/19 20:33 78 09/27/19 20:07 64 09/27/19 19:28 98.1 F 136 H 30 H 148/73 99 Intake and Output 09/27/19 09/27/19 09/27/19 06:59 14:59 22:59 Other: Weight 61.235 kg General: non toxic, no distress, appears older than stated age, normal weight Derm: no unusual rashes/lesions no unusual ecchymoses, warm, dry Head: atraumatic, normocephalic, symmetric Eyes: EOMI, no lid lag, anicteric sclera, pupils equal round reactive to light ENT: Nose and ears atraumatic, no thrush, no pharyngeal erythema Neck: No thyromegaly, no cervical lymphadenopathy, trachea midline, supple Mouth: no lip lesion, mucus membranes moist Cardiovascular: S1S2 reg, no murmur, positive posterior tibial pulse bilateral, no edema, capillary refill less than 2 seconds Lungs: Mild expiratory wheezing, no rales or rhonchi appreciated, no accessory muscle use Abdominal: soft, right upper quadrant tenderness to palpation, no guarding, no appreciable organomegaly, normal bowel sounds Ext: no gross muscle atrophy, muscle strength 5 out of 5 in all 4 extremities grossly, no contractures, Neuro: CN II-XI grossly intact, light touch intact all 4 extremities, finger to nose within normal limits, Psych: Alert, oriented, appropriate affect Results CBC & Chem 7: 09/27/19 19:50 09/27/19 19:50 Labs: Abnormal Lab Results - Last 24 Hours (Table) 03/07/20 03/07/20 03/07/20 Range/Units 19:50 19:50 20:40 WBC 11.0 H (3.8-10.6) k/uL Hct 48.2 H (34.0-46.0) % Sodium 134 L (137-145) mmol/L Carbon Dioxide 20 L (22-30) mmol/L Glucose 113 H (74-99) mg/dL AST 233 H (14-36) U/L ALT 197 H (4-34) U/L Alkaline Phosphatase 130 H (38-126) U/L Urine Appearance Cloudy H (Clear) Urine pH 8.5 H (5.0-8.0) Urine Bacteria Rare H (None) /hpf Urine Mucus Rare H (None) /hpf Assessment and Plan Plan: Right upper quadrant abdominal pain with transaminitis -Right upper quadrant ultrasound reviewed, unremarkable -Transaminitis possibly secondary to vomiting from possible gastroenteritis -Obtain hepatitis panel -Repeat LFTs, if uptrending consider GI consult -Pain control Acute asthma exacerbation -Solu-Medrol, DuoNeb's -Patient requesting for nebulizer machine upon discharge -Supplemental oxygen Tobacco abuse -Advised patient on importance of cessation -Nicotine patch as needed DVT prophylaxis -Heparin subq The patient is admitted with an anticipated less than 2 midnight stay for ev aluation of acute asthma exacerbation CODE STATUS: Full Code Discussed with: Patient Anticipated discharge date: 1-[address]: Home A total of 45 minutes was spent on the care of this complex patient more than 50% of the time was spent in counseling and care coordination.
[2019-09-28] MEDS: methylPREDNISolone SOD SUCCI 125 MG/2 ML VIAL IV SCH ×5 (00:22→23:38)
[2019-09-28] MEDS: NICOTINE 7MG/24HR PATCH TRANSDERM SCH ×2 (00:22→07:38)
[2019-09-28] MEDS: MORPHINE SULFATE 2 MG/ML SYRINGE IVP PRN ×4 (00:22→22:21)
[2019-09-28] MEDS: HEPARIN SODIUM,PORCINE 5,000 UNIT/ML 1 ML VIAL SQ SCH ×4 (00:31→23:39)
[2019-09-28] MEDS: IPRATROPIUM-ALBUTEROL 3 ML NEB INHALATION PRN (03:36)
[2019-09-28] MEDS: IPRATROPIUM-ALBUTEROL 3 ML NEB INHALATION SCH ×4 (07:17→18:59)
[2019-09-28] MEDS: PANTOPRAZOLE 40 MG TABLET PO SCH (07:38)
[2019-09-28 07:45] LABS: ALT 147 U/L (4-34); AST 145 U/L (14-36); African American GFR (CKD) >90 (>60 ml/min/1.73 sqM); Albumin 3.2 g/dL (3.5-5.0); Alkaline Phosphatase 91 U/L (38-126); Anion Gap 6 mmol/L; Blood Urea Nitrogen 13 mg/dL (7-17); Calcium 8.8 mg/dL (8.4-10.2); Carbon Dioxide 22 mmol/L (22-30); Chloride 106 mmol/L (98-107); Glucose 176 mg/dL (74-99); Non-African American GFR(CKD) >90 (>60 ml/min/1.73 sqM); Sodium 134 mmol/L (137-145); Total Bilirubin 0.5 mg/dL (0.2-1.3); Total Protein 6.1 g/dL (6.3-8.2)
[2019-09-28] MEDS: ONDANSETRON 4 MG/2 ML VIAL IVP PRN (09:48)
[2019-09-28] MEDS: ALPRAZolam 0.25 MG TAB PO PRN ×2 (15:14→23:39)
[2019-09-28] MEDS: traMADol 50 MG TAB PO PRN ×2 (15:14→23:38)
--- NOTE | 2019-09-28 15:14 | P.PN ---
Subjective Progress Note Date: 09/28/19 Principal diagnosis: shortness of breath Patient is a 44 yo CF with asthma initially on chronic inhalers, on going tobacco abuse, and ETOH use who presetned with the hospital with shortness of breath and abdominal pain. In the emergency department she underwent an extensive evaluation. On her initial vital signs her pulse rate was 136 and respirations were 30. Initial laboratory analysis showed a white blood cell count of 11, sodium 134, carbon dioxide 20, AST 233, ALT 197, alkaline phosphatase of 1:30. Urinalysis was negative. Chest x-ray was negative. She was started on IV fluids, bronchodilators, and steroids. On the morning after admission her liver enzymes had improved slightly. She underwent a gallbladder ultrasound which was negative and did not show any acute liver inflammation. On the morning of 09/28/19 she still had significant wheezing. Patient seen and examined at bedside. She reports she is still feeling dyspneic and not much improved since yesterday. She continues to complain of right sided abdominal pain. She denies any nausea or vomiting. She states her cough is unchanged. She has not tolerated prednisone well in the past. She reports she has had increasing anxiety, inability to sleep, jitteriness. She does not want to take this on discharge. She's had likely tolerates IV steroids well and she would be willing to try a Medrol Dosepak. Reviewed her hepatitis profile from her last admission in June 2019 which showed positive for hepatitis C antibody. We had an indepth discussion on the possibility of recurrent hepatitis C infection. We told her that she needs to find a family physician to follow with after discharge. We will order her hepatitis C viral RNA quantitative as well as hepatitis C genotype. I went over the risks of transmission of the disease with her and her significant other. We will have social work and case management meet with the patient tomorrow to help facilitate and nebulizer and establish a primary care physician. Objective - Vital Signs Vital signs: Vital Signs Temp 97.8 F 09/28/19 13:04 Pulse 88 09/28/19 14:29 Resp 16 09/28/19 14:29 BP 131/73 09/28/19 13:04 Pulse Ox 98 09/28/19 13:04 Intake & Output 09/27/19 09/28/19 09/28/19 17:59 06:59 18:59 Intake Total 1150 Balance 1150 Weight Intake: Oral 1150 Other: # Voids 1 - Exam General: non toxic, no distress, appears at stated age Derm: + multiple tattoos, warm, dry Head: atraumatic, normocephalic, symmetric Eyes: EOMI, no lid lag, anicteric sclera Mouth: no lip lesion, mucus membranes moist Cardiovascular: S1S2 reg, no murmur, positive posterior tibial pulse bilateral, Lungs: wheeze bilateral right greater than left , no accessory muscle use, 3 word conversational dyspnea Abdominal: soft, nontender to palpation, no guarding, no appreciable organomega ly Ext: no gross muscle atrophy, no edema, no contractures Neuro: CN II-XI grossly intact, no focal neuro deficits Psych: Alert, oriented, upset and crying - Labs CBC & Chem 7: 09/27/19 19:50 09/28/19 06:56 Labs: Abnormal Lab Results - Last 24 Hours (Table) 09/27/19 09/27/19 09/27/19 Range/Units 19:50 19:50 20:40 WBC 11.0 H (3.8-10.6) k/uL Hct 48.2 H (34.0-46.0) % Sodium 134 L (137-145) mmol/L Carbon Dioxide 20 L (22-30) mmol/L Glucose 113 H (74-99) mg/dL AST 233 H (14-36) U/L ALT 197 H (4-34) U/L Alkaline Phosphatase 130 H (38-126) U/L Total Protein (6.3-8.2) g/dL Albumin (3.5-5.0) g/dL Urine Appearance Cloudy H (Clear) Urine pH 8.5 H (5.0-8.0) Urine Bacteria Rare H (None) /hpf Urine Mucus Rare H (None) /hpf 09/28/19 Range/Units 06:56 WBC (3.8-10.6) k/uL Hct (34.0-46.0) % Sodium 134 L (137-145) mmol/L Carbon Dioxide (22-30) mmol/L Glucose 176 H (74-99) mg/dL AST 145 H (14-36) U/L ALT 147 H (4-34) U/L Alkaline Phosphatase (38-126) U/L Total Protein 6.1 L (6.3-8.2) g/dL Albumin 3.2 L (3.5-5.0) g/dL Urine Appearance (Clear) Urine pH (5.0-8.0) Urine Bacteria (None) /hpf Urine Mucus (None) /hpf Assessment and Plan Assessment: Acute exacerbation of asthma -Continue with bronchodilators scheduled and when necessary -Continue with Solu-Medrol -Pulmonary hygiene -Patient reports adverse reaction to prednisone in the past and will not take this orally, would be willing to try Medrol Dosepak. -Consult case management as patient will need nebulizer on discharge Transaminitis with Hepatitis C antibody positive -Hepatitis C quantitative RNA and hepatitis C genotype sent -Outpatient establishment with PCP and possible GI referral -Follow liver enzymes Tobacco abuse -Cessation -Nicotine replacement Patient is transitioned from observation status to inpatient status and she has failed 24 hours of outpatient therapy for her asthma exacerbation. Currently she still is actively wheezing and feeling short of breath without significant improvement since admission. Early discharge would likely result in rehospitalization and worsening of her respiratory status. DVT prophylaxis: Heparin Discussed with: Patient, nursings, Patients significant other Anticipated discharge: in 1-[address]: home A total of 45 minutes was spent on the care of this complex patient more than 50% of the time was spent in counseling and care coordination.
[2019-09-29] MEDS: methylPREDNISolone SOD SUCCI 125 MG/2 ML VIAL IV SCH ×2 (04:53→13:31)
[2019-09-29] MEDS: MORPHINE SULFATE 2 MG/ML SYRINGE IVP PRN ×4 (04:54→22:19)
[2019-09-29] MEDS: IPRATROPIUM-ALBUTEROL 3 ML NEB INHALATION SCH ×4 (07:29→19:30)
[2019-09-29] MEDS: NICOTINE 7MG/24HR PATCH TRANSDERM SCH (07:37)
[2019-09-29] MEDS: PANTOPRAZOLE 40 MG TABLET PO SCH (07:38)
[2019-09-29] MEDS: HEPARIN SODIUM,PORCINE 5,000 UNIT/ML 1 ML VIAL SQ SCH ×3 (07:38→23:46)
[2019-09-29] MEDS: ALPRAZolam 0.25 MG TAB PO PRN ×2 (07:40→22:19)
[2019-09-29] MEDS: traMADol 50 MG TAB PO PRN ×2 (07:40→22:18)
[2019-09-29 09:52] LABS: HCT 41.5 % (34.0-46.0); HGB 13.4 gm/dL (11.4-16.0); MCH 30.7 pg (25.0-35.0); MCHC 32.3 g/dL (31.0-37.0); MCV 95.1 fL (80.0-100.0); Mean Platelet Volume 8.7; Platelet Count 249 k/uL (150-450); RBC 4.37 m/uL (3.80-5.40); RDW 13.1 % (11.5-15.5); WBC 22.1 k/uL (3.8-10.6)
[2019-09-29 10:09] LABS: ALT 117 U/L (4-34); AST 73 U/L (14-36); African American GFR (CKD) >90 (>60 ml/min/1.73 sqM); Albumin 3.3 g/dL (3.5-5.0); Alkaline Phosphatase 92 U/L (38-126); Anion Gap 6 mmol/L; Blood Urea Nitrogen 15 mg/dL (7-17); Calcium 9.2 mg/dL (8.4-10.2); Carbon Dioxide 22 mmol/L (22-30); Chloride 106 mmol/L (98-107); Glucose 138 mg/dL (74-99); Non-African American GFR(CKD) >90 (>60 ml/min/1.73 sqM); Potassium 4.8 mmol/L (3.5-5.1); Sodium 134 mmol/L (137-145); Total Bilirubin 0.3 mg/dL (0.2-1.3)
[2019-09-29 10:46] LABS: Hepatitis A Antibody IgM Non-Reactive (Non-Reactive); Hepatitis B Surface AB- Quant 3.5 mIU/mL; Hepatitis B Surface Antibody Non-Reactive (Non-Reactive); Hepatitis B Surface Antigen Non-Reactive (Non-Reactive); Hepatitis C IgG Antibody Reactive (Non-Reactive)
--- NOTE | 2019-09-29 12:55 | P.PN ---
Subjective Progress Note Date: 09/29/19 Principal diagnosis: SOB Patient has been having severe abdominal pain over the past several weeks. It hurts more when she coughs but she states that the pain is ongoing all the time. She thinks is related to hepatitis C. She has slight nausea and vomiting as well. Her last bowel movement was when she came in on Sunday. Objective - Vital Signs Vital signs: Vital Signs Temp 97.5 F L 09/29/19 11:48 Pulse 78 09/29/19 11:48 Resp 17 09/29/19 11:48 BP 117/68 09/29/19 11:48 Pulse Ox 97 09/29/19 11:48 Intake & Output 09/28/19 09/29/19 09/29/19 18:59 06:59 18:59 Intake Total 1150 240 Balance 1150 240 Intake: Oral 1150 240 Other: Voiding Method Toilet # Voids 1 2 - Exam Constitutional: No acute distress, conversant, pleasant Eyes:Anicteric sclerae, moist conjunctiva, no lid-lag, PERRLA, ENMT: Oropharynx clear, no erythema, exudates Neck: Supple, FROM, no masses, or JVD, No carotid bruits, No thyromegaly Lungs: Diffuse wheezing , Clear to percussion, Normal respiratory effort, no accessory muscle use Cardiovascular: Heart regular in rate and rhythm, No murmurs, gallops, or rubs, No peripheral edema Abdominal: Soft, diffusely tender, no guarding, rebound or rigidity, Normoactive bowel sounds, No hepatomegaly, No splenomegaly, No palpable mass Skin: Normal temperature, tone, texture, turgor, no induration, No subcutaneous nodules, No rash, lesions, No ulcers Extremities: No digital cyanosis, No clubbing, Pedal pulses intact and symmetrical, Radial pulses intact and symmetrical, No calf tenderness Psychiatric: Alert and oriented to person, place and time, appropriate affect, intact judgement Neuro: Muscles Strength 5/5 in all 4 extremities, Sensation to light touch grossly present throughout, Cranial nerves II-XII grossly intact, no focal sensory deficits - Labs CBC & Chem 7: 09/29/19 08:46 09/29/19 08:46 Labs: Abnormal Lab Results - Last 24 Hours (Table) 09/28/19 09/29/19 09/29/19 Range/Units 06:56 08:46 08:46 WBC 22.1 H (3.8-10.6) k/uL Sodium 134 L (137-145) mmol/L Glucose 138 H (74-99) mg/dL AST 73 H (14-36) U/L ALT 117 H (4-34) U/L Total Protein 6.0 L (6.3-8.2) g/dL Albumin 3.3 L (3.5-5.0) g/dL Hep C IgG Ab Reactive H (Non-Reactive) Assessment and Plan Plan: Acute exacerbation of asthma -Continue with bronchodilators scheduled and when necessary -Wean down solu-Medrol -Pulmonary hygiene -Patient reports adverse reaction to prednisone in the past and will not take this orally, would be willing to try Medrol Dosepak. -Will provide nebulizer on discharge Transaminitis with Hepatitis C antibody positive -Hepatitis C quantitative RNA and hepatitis C genotype sent -Outpatient establishment with PCP and possible GI referral -Follow liver enzymes Abdominal pain Most likely secondary to muscle spasms in the abdominal wall secondary to coughing Rule out intra-abdominal disease/process Order computed tomography scan of the abdomen and pelvis Tobacco abuse -Cessation -Nicotine replacement Patient is transitioned from observation status to inpatient status and she has failed 24 hours of outpatient therapy for her asthma exacerbation. Currently she still is actively wheezing and feeling short of breath without significant improvement since admission. Early discharge would likely result in rehospitalization and worsening of her respiratory status. DVT prophylaxis: Heparin Discussed with: Patient, nursings, care management Anticipated discharge: in [address]: home A total of 45 minutes was spent on the care of this complex patient more than 50% of the time was spent in counseling and care coordination.
[2019-09-29] MEDS: methylPREDNISolone SOD SUCCI 40 MG/ML 1 ML VIAL IV SCH ×3 (13:26→23:46)
[2019-09-29] MEDS: IPRATROPIUM-ALBUTEROL 3 ML NEB INHALATION PRN (13:55)
[2019-09-29] MEDS: IOPAMIDOL CONTRAST (ORAL USE) VIAL PO PRN ×2 (14:06→15:00)
[2019-09-29 15:53] LABS: Hepatitis B Virus DNA Not detected (Not detected); Hepatitis B Virus DNA, Quant <10 IU/mL (<10); Log HBV IU/mL <1.00 (<1.00)
--- NOTE | 2019-09-29 16:37 | CT ---
EXAMINATION TYPE: CT abdomen pelvis wo con DATE OF EXAM: 09/29/2019 COMPARISON: 03/20/2018 HISTORY: 44-year-old female abdominal pain CT DLP: 360.4 mGycm. Automated exposure control for dose reduction was used. TECHNIQUE: Contiguous axial scanning of the abdomen and pelvis without IV contrast. Coronal and sagit luis reconstructions performed. FINDINGS: LUNG BASES: Strandy bibasilar atelectasis. Heart normal size. No pleural effusion. LIVER/GB: Noncontrast appearance shows no gross abnormality. PANCREAS: No significant abnormality is seen. SPLEEN: Multiple calcified granulomas. ADRENALS: No significant abnormality is seen. KIDNEYS: Mild bilateral pelvicaliectasis, probably transient. No calculi are seen. BOWEL: Redundant sigmoid colon. Normal appendix. Mild overall stool burden. No pericolonic inflammat ory change. LYMPH NODES: No mesenteric or retroperitoneal lymphadenopathy seen. There is a 1 cm soft tissue nodul e within the subcutaneous adipose left paramedian mid abdomen. PELVIS: The bladder is urine distended. Uterus anteverted. Follicular changes in both ovaries with a 3.7 cm cystic lesion left ovary, likely dominant follicle or functional cyst. No abnormal fluid colle ction in the pelvis or pelvic lymphadenopathy seen. Pelvic phlebolith. BONES: Posterior disc protrusion at L5-S1. No osseous destructive process. IMPRESSION: 1. A 1 cm soft tissue nodule within the subcutaneous adipose of the left paramedian mid abdomen. Cor relate for any palpable abnormality and for possible injection site. 2. Prominent follicular change in both ovaries with a probable 3.7 cm dominant follicle or functiona l cyst in the left ovary.
[2019-09-29] MEDS: POLYETHYLENE GLYCOL 3350 17 GM POWD.PACK PO SCH (17:09)
[2019-09-29] MEDS: ONDANSETRON 4 MG/2 ML VIAL IVP PRN (18:06)
[2019-09-30] MEDS: methylPREDNISolone SOD SUCCI 40 MG/ML 1 ML VIAL IV SCH ×4 (05:29→23:46)
[2019-09-30] MEDS: PANTOPRAZOLE 40 MG TABLET PO SCH (08:07)
[2019-09-30] MEDS: MORPHINE SULFATE 2 MG/ML SYRINGE IVP PRN ×5 (08:07→23:47)
[2019-09-30] MEDS: NICOTINE 7MG/24HR PATCH TRANSDERM SCH (08:07)
[2019-09-30] MEDS: HEPARIN SODIUM,PORCINE 5,000 UNIT/ML 1 ML VIAL SQ SCH ×3 (08:07→23:46)
[2019-09-30] MEDS: ALPRAZolam 0.25 MG TAB PO PRN ×2 (08:07→23:47)
[2019-09-30] MEDS: POLYETHYLENE GLYCOL 3350 17 GM POWD.PACK PO SCH (08:10)
[2019-09-30] MEDS: IPRATROPIUM-ALBUTEROL 3 ML NEB INHALATION SCH ×4 (08:55→21:40)
--- NOTE | 2019-09-30 12:49 | P.PN ---
Subjective Progress Note Date: 09/30/19 Principal diagnosis: SOB Patient is feeling better but she is still having shortness of breath with activity. No chest pain. Still with abdominal pain. Objective - Vital Signs Vital signs: Vital Signs Temp 97.7 F 09/30/19 04:55 Pulse 68 09/30/19 12:18 Resp 16 09/30/19 04:55 BP 120/71 09/30/19 04:55 Pulse Ox 95 09/30/19 08:57 Intake & Output 09/29/19 09/30/19 09/30/19 18:59 06:59 18:59 Intake Total 480 960 240 Balance 480 960 240 Intake: Oral 480 960 240 Other: Voiding Method Toilet # Voids 3 1 - Exam Constitutional: No acute distress, conversant, pleasant Eyes:Anicteric sclerae, moist conjunctiva, no lid-lag, PERRLA, ENMT: Oropharynx clear, no erythema, exudates Neck: Supple, FROM, no masses, or JVD, No carotid bruits, No thyromegaly Lungs: Diffuse wheezing , Clear to percussion, Normal respiratory effort, no accessory muscle use Cardiovascular: Heart regular in rate and rhythm, No murmurs, gallops, or rubs, No peripheral edema Abdominal: Soft, diffusely tender, no guarding, rebound or rigidity, Normoactive bowel sounds, No hepatomegaly, No splenomegaly, No palpable mass Skin: Normal temperature, tone, texture, turgor, no induration, No subcutaneous nodules, No rash, lesions, No ulcers Extremities: No digital cyanosis, No clubbing, Pedal pulses intact and symmetrical, Radial pulses intact and symmetrical, No calf tenderness Psychiatric: Alert and oriented to person, place and time, appropriate affect, intact judgement Neuro: Muscles Strength 5/5 in all 4 extremities, Sensation to light touch grossly present throughout, Cranial nerves II-XII grossly intact, no focal sensory deficits - Labs CBC & Chem 7: 09/29/19 08:46 09/29/19 08:46 Assessment and Plan Plan: Acute exacerbation of asthma -Continue with bronchodilators scheduled and when necessary -Continue solu-Medrol -Pulmonary hygiene -Patient reports adverse reaction to prednisone in the past and will not take this orally, would be willing to try Medrol Dosepak. -Nebulizer provided for discharge Transaminitis with Hepatitis C antibody positive -Hepatitis C quantitative RNA and hepatitis C genotype sent -Outpatient establishment with PCP and possible GI referral -Follow liver enzymes Abdominal pain Most likely secondary to muscle spasms in the abdominal wall secondary to coughing computed tomography scan of the abdomen and pelvis negative for any acute intra- abdominal process. Tobacco abuse -Cessation -Nicotine replacement Patient is transitioned from observation status to inpatient status and she has failed 24 hours of outpatient therapy for her asthma exacerbation. Currently she still is actively wheezing and feeling short of breath without significant improvement since admission. Early discharge would likely result in rehospitalization and worsening of her respiratory status. DVT prophylaxis: Heparin Discussed with: Patient, nursings, care management Anticipated discharge: in [address]: home A total of 45 minutes was spent on the care of this complex patient more than 50% of the time was spent in counseling and care coordination.
--- NOTE | 2019-09-30 13:52 | CDI ---
Documentation Clarification Form Date: 09/30/2019 01:25:57 PM From: Landy Blankenship RN, CCDS Admit Date: 09/28/2019 02:54:00 PM Patient Name: Pavithra Colvin Visit Number: [id number] Discharge Date: ATTENTION: The Clinical Documentation Specialists (CDI) and [facility] Coding Staff appreciate your assistance in clarifying documentation. Please respond to the clarification below the line at the bottom and electronically sign. The CDI & [facility] Coding staff will review the response and follow-up if needed. Please note: Queries are made part of the Legal Health Record. If you have any questions, please contact the author of this message via ITS. Dr. Jerrica Sellers Acute asthma exacerbation is documented in the ED, H/P and ongoing progress notes and further clarification is needed. History/risk factors: Asthma, Current every day smoker Clinical Indicators: 44-year-old female presented to ER on 09/26 with complaints of shortness of breath, severe dyspnea, tachycardia, wheezing bilaterally. In the emergency department on her initial vital signs pulse rate was 136 and respirations were 30 she was 99 % on room air. 09/26 respiratory exam in ED: respiratory distress wheezes, 09/26 Chest x-ray: negative Treatment: Albuterol/Atrovent inhalators (per orders) Solu-Medrol 40 IV q6hr Monitor O2 Sat's In your professional opinion, can you please further specify severity of the acute asthma exacerbation, if known? Severity Mild intermittent Mild persistent Moderate persistent Severe persistent Other, please specify ____ Unable to determine Form or Type Cough variant Childhood Exercise induced bronchospasm Extrinsic allergic Idiosyncratic Intrinsic nonallergic Late-onset Mixed Other, please specify____ Unable to determine (Last Revision: October 2017) Severe persistent Mixed MTDD
[2019-09-30] MEDS: traMADol 50 MG TAB PO PRN (23:47)
[2019-10-01] MEDS: MORPHINE SULFATE 2 MG/ML SYRINGE IVP PRN ×3 (03:35→14:03)
[2019-10-01] MEDS: methylPREDNISolone SOD SUCCI 40 MG/ML 1 ML VIAL IV SCH ×2 (05:39→12:58)
[2019-10-01] MEDS: IPRATROPIUM-ALBUTEROL 3 ML NEB INHALATION SCH ×2 (07:14→10:59)
[2019-10-01] MEDS: HEPARIN SODIUM,PORCINE 5,000 UNIT/ML 1 ML VIAL SQ SCH (08:38)
[2019-10-01] MEDS: PANTOPRAZOLE 40 MG TABLET PO SCH (08:38)
[2019-10-01] MEDS: NICOTINE 7MG/24HR PATCH TRANSDERM SCH (08:38)
[2019-10-01] MEDS: POLYETHYLENE GLYCOL 3350 17 GM POWD.PACK PO SCH (08:39)
[2019-10-01] MEDS: traMADol 50 MG TAB PO PRN (08:46)
[2019-10-01 12:26] VITALS: BP 111/67; PULSE 83; RESP 18; TEMP 97.8
[2019-10-01] MEDS: ALPRAZolam 0.25 MG TAB PO PRN (14:03)
[2019-10-01 14:06] LABS: HCV Qualitative Result DETECTED (Not detected)
--- NOTE | 2019-10-01 14:27 | P.DS ---
Providers Date of admission: 09/28/19 14:54 Expected date of discharge: 10/01/19 Attending physician: Priyank Lema MD Primary care physician: Stated None Hospital Course: 44-year-old female with a PMH of asthma and tobacco abuse who presented to the ED with complaints of gradually worsening shortness of breath over the past week. She was using her inhaler multiple times in the day without much help. She had associated nonproductive cough. She also reported a right upper quadrant abdominal pain, sharp in nature, nonradiating, 8 out of 10, with associated vomiting. She denied hematemesis, though endorsed 6 episodes of vomiting, nonbilious. She denied any history of liver issues. The patient has a long-standing history of asthma with multiple presentations to the ED for shortness of breath. She recently moved from [place]. She denied chest pain, fever, chills, dizziness, or diarrhea. She also denied recent travel or sick contacts. Evaluation in the emergency room with a chest x-ray that was unremarkable, a gallbladder ultrasound that was unremarkable without evidence of gallstones, and EKG showing normal sinus rhythm at [address]/T-wave changes noted. Upon presentation, the patient's vitals were BP 140/73, pulse 136, temperature 98.1, and SpO2 99% on room air. Laboratory evaluation revealed WBC count of 11.0, AST 233, ALT 197, troponin less than 0.012, alkaline phosphatase 130, UA unremarkable, BUN 11, and a creatinine of 0.76. The patient was given IV Solu- Medrol and albuterol inhaler and was admitted to the medicine service for further management. Patient was kept on DuoNeb's on IV steroids. Upon reviewing her labs from June 2019 she tested positive for hepatitis C. This was reviewed with the patient, she was encouraged to follow-up with her primary care physician in order to get a referral to a liver specialist for treatment. Throughout the admission she was having diffuse abdominal pain that is worse with coughing. Computed tomography scan of the abdomen and pelvis was done and that was negative for any acute intra-abdominal process. Today patient will be discharged, arrangements were made for her to get a nebulizer. She was prescribed the medicines. She was encouraged to follow-up with primary care physician. The patient also lives in a house where people smoke, patient smokes himself. She was informed that it is best for him. He smokes outside the house She was prescribed nicotine patch upon discharge. Time for discharge 35 minutes. Patient Condition at Discharge: Stable Plan - Discharge Summary Discharge Rx Participant: No New Discharge Prescriptions: New Albuterol Sulfate [Accuneb] 0.63 mg INHALATION Q6HR #30 neb Nicotine 7Mg/24Hr Patch [Habitrol] 1 patch TRANSDERM DAILY #21 patch methylPREDNISolone Dose Pack [Medrol Dose Pack] 4 mg PO DIRECTED #21 package Albuterol Sulfate [Proair Hfa] 1 - 2 puff INHALATION Q6HR PRN #1 inhaler PRN Reason: Shortness Of Breath Continue Albuterol Sulfate [Proair Hfa] 1 - 2 puff INHALATION Q6HR PRN #1 inhaler PRN Reason: Shortness Of Breath Nicotine 7Mg/24Hr Patch [Habitrol] 1 mg TRANSDERM DAILY Discharge Medication List Albuterol Sulfate [Proair Hfa] 1 - 2 puff INHALATION Q6HR PRN #1 inhaler 09/08/19 [Rx] Nicotine 7Mg/24Hr Patch [Habitrol] 1 mg TRANSDERM DAILY 09/27/19 [History] Albuterol Sulfate [Accuneb] 0.63 mg INHALATION Q6HR #30 neb 10/01/19 [Rx] Albuterol Sulfate [Proair Hfa] 1 - 2 puff INHALATION Q6HR PRN #1 inhaler 10/01/19 [Rx] Nicotine 7Mg/24Hr Patch [Habitrol] 1 patch TRANSDERM DAILY #21 patch 10/01/19 [Rx] methylPREDNISolone Dose Pack [Medrol Dose Pack] 4 mg PO DIRECTED #21 package 10/01/19 [Rx] Follow up Appointment(s)/Referral(s): Jimmie Hernandez MD [STAFF PHYSICIAN] - 1 Week (Dr. Conner office will call and schedule follow-up appt. after discharge. ) Patient Instructions/Handouts: Albuterol (By breathing), Nicotine (Absorbed through the skin), Methylprednisolone (By mouth), Asthma (DC), How to Stop Smoking (DC), Hepatitis C (GEN), How to Use a Nebulizer (DC) Activity/Diet/Wound Care/Special Instructions: Activity as tolerated Diet as tolerated.
== END 2019-10-01 14:54 | disposition home or self-care (01) ==
LOC: EC 19:26 → 5NMEDONC 21:32 → OBSVTOIN 09-28 14:54 → INTOOBSV 09-28 14:54 → UNDODISIN 10-01 14:54
PROVIDERS: ADMIT Internal Medicine; ATTEND Internal Medicine
DX: J45.50 Severe persistent asthma, uncomplicated (principal); B19.20 Unspecified viral hepatitis C without hepatic coma; R06.03 Acute respiratory distress; F17.200 Nicotine dependence, unspecified, uncomplicated; R11.2 Nausea with vomiting, unspecified; R10.11 Right upper quadrant pain; Z88.0 Allergy status to penicillin; Z79.899 Other long term (current) drug therapy; Z79.52 Long term (current) use of systemic steroids
CPT/HCPCS: 96376 ×4; 96372 ×4; 96375 ×3; 96361; 96374; 99285; 36415; 94640 ×9; 94760 ×4; 93005; 86803; 85379; 86709; 87522; 80053 ×3; 87517; 87902; 83605; 83735; 84484; 85025; 85027; 85610; 85730; 86706; 87340; 81001; 81025; 71046; 76705; 74176; G0378 ×5; S4990 ×4; J1644 ×4; J2920 ×3; J2930 ×3; J2405 ×3; J2270 ×4; J1170

== ENCOUNTER → 2019-12-16 | Outpatient (CLI) | payer OTHER ==
[2019-12-16 11:30] LABS: Basophils # (A) 0.1 k/uL (0-0.2); Basophils % (A) 0 %; Eosinophils # (A) 0.2 k/uL (0-0.7); Eosinophils % (A) 2 %; HCT 46.5 % (34.0-46.0); HGB 14.9 gm/dL (11.4-16.0); Lymphocytes # (A) 1.9 k/uL (1.0-4.8); Lymphocytes % (A) 17 %; MCH 31.7 pg (25.0-35.0); MCHC 32.1 g/dL (31.0-37.0); MCV 98.9 fL (80.0-100.0); Mean Platelet Volume 7.4; Monocytes # (A) 0.7 k/uL (0-1.0); Monocytes % (A) 6 %; Neutrophils # (A) 8.1 k/uL (1.3-7.7); Neutrophils % (A) 73 %; Platelet Count 294 k/uL (150-450); RDW 13.5 % (11.5-15.5)
[2019-12-16 12:51] LABS: Erythrocyte Sedimentation Rate 2 mm/hr (0-20)
[2019-12-16 15:59] LABS: % Iron Saturation 41.78 (12.00-45.00); ALT 49 U/L (8-44); AST 41 U/L (13-35); African American GFR (CKD) 90.8 (60.0-200.0); Albumin/Globulin Ratio 1.54 (1.60-3.17); Alkaline Phosphatase 88 U/L (41-126); BUN/Creat Ratio 13.33 Ratio (12.00-20.00); C Reactive Protein <0.4 mg/dL (0.0-0.8); Calcium 9.4 mg/dL (8.7-10.3); Carbon Dioxide 30.6 mmol/L (21.6-31.8); Chloride 109 mmol/L (96-109); Globulin 2.4 g/dL (1.6-3.3); Glucose 73 mg/dL (70-110); Iron 150 ug/dL (50-170); Non-African American GFR(CKD) 78.3 (60.0-200.0); Potassium 5.2 mmol/L (3.5-5.5); Sodium 145 mmol/L (135-145); Total Bilirubin 0.5 mg/dL (0.3-1.2); Total Iron Binding Capacity 359 ug/dL (228-460); Total Protein 6.1 g/dL (6.2-8.2)
== END | disposition home or self-care (01) ==
LOC: LABWHC1 10:34
PROVIDERS: ATTEND Nurse Practitioner Adult Health
DX: J44.9 Chronic obstructive pulmonary disease, unspecified (principal); B17.10 Acute hepatitis C without hepatic coma; F41.1 Generalized anxiety disorder; N94.10 Unspecified dyspareunia
CPT/HCPCS: 36415; 80053; 82140; 82306; 82607; 83540; 83550; 85025; 85652; 86140

== ENCOUNTER 2020-02-12 12:54 | Emergency (ER) | payer OTHER ==
--- NOTE | 2020-02-12 13:38 | ED ---
Psych HPI - General Chief Complaint: Psychiatric Symptoms Stated Complaint: mental health Time Seen by Provider: 02/12/20 13:15 Source: patient, family Mode of arrival: ambulatory - History of Present Illness Initial Comments: Patient is a 44-year-old female with history of depression presenting to emergency Department for psychiatric evaluation. Patient states she was initial ly started on Prozac several months ago and was given Xanax to cope with her depression. Patient states about 2 months ago she was taken off cold turkey from the medication. Patient states now she has been having difficulty sleeping. States she is also having visual hallucinations where she is seeing people and hearing voices. Patient also reports some panic attacks but does not have any anxiolytics to help with the condition. Patient states she saw her counselor as [facility] was advised to come to the emergency department for further evaluation. Denies any homicidal thoughts or ideations. She denies other complaints. - Related Data Home Medications Medication Instructions Recorded Confirmed ALPRAZolam [Xanax] 0.5 mg PO DAILY PRN 02/12/20 02/12/20 ARIPiprazole [Abilify] 5 mg PO DAILY 02/12/20 02/12/20 busPIRone HCL [Buspar] 30 mg PO DAILY 02/12/20 02/12/20 Previous Rx's Medication Instructions Recorded ALPRAZolam [Xanax] 1 mg PO DAILY PRN #3 tab 02/12/20 Allergies Allergy/AdvReac Type Severity Reaction Status Date / Time Penicillins Allergy Anaphylaxis Verified 02/12/20 14:57 Review of Systems ROS Statement: Those systems with pertinent positive or pertinent negative responses have been documented in the HPI. ROS Other: All systems not noted in ROS Statement are negative. Past Medical History Past Medical History: Asthma Additional Past Medical History / Comment(s): Hepatitis C History of Any Multi-Drug Resistant Organisms: None Reported Past Surgical History: No Surgical Hx Reported Past Anesthesia/Blood Transfusion Reactions: No Reported Reaction Past Psychological History: No Psychological Hx Reported Smoking Status: Current every day smoker Past Alcohol Use History: Rare Past Drug Use History: Marijuana General Exam Limitations: no limitations General appearance: alert, in no apparent distress Head exam: Present: atraumatic, normocephalic, normal inspection Eye exam: Present: normal appearance, PERRL, EOMI Pupils: Present: normal accommodation ENT exam: Present: normal exam, normal oropharynx, mucous membranes moist, TM's normal bilaterally, normal external ear exam Neck exam: Present: normal inspection, full ROM. Absent: tenderness Respiratory exam: Present: normal lung sounds bilaterally. Absent: respiratory distress, wheezes, rales Cardiovascular Exam: Present: regular rate, normal rhythm, normal heart sounds Back exam: Present: normal inspection, full ROM. Absent: tenderness Neurological exam: Present: alert, oriented X3, normal gait Psychiatric exam: Present: normal affect, normal mood Skin exam: Present: warm, dry, intact, normal color Course Vital Signs 02/12/20 02/12/20 12:56 20:00 Temperature 98.2 F 98.0 F Pulse Rate 102 H 64 Respiratory 18 16 Rate Blood Pressure 134/81 133/90 O2 Sat by Pulse 98 97 Oximetry Medical Decision Making - Medical Decision Making Patient is a 44-year-old female with history of anxiety presenting to the emergency department for psychiatric evaluation. Patient has no suicidal or homicidal thoughts or ideations. Patient initially having some slight anxiety. Patient given anxiolytics in the ED. Urine drug screen positive for marijuana. No suicidal, homicidal thoughts or ideations. EPS evaluated the patient and recommend discharge. Patient will be discharged with 3 tablets of Xanax. Patient is to follow up with outpatient psychiatric services. Return parameters thoroughly discussed patient was understanding and agreeable. Safety plan discussed. Case discussed with physician. - Lab Data Lab Results 02/12/20 Range/Units 14:11 Urine Color Light Yellow Urine Appearance Clear (Clear) Urine pH 7.0 (5.0-8.0) Ur Specific [place] 1.003 (1.001-1.035) Urine Protein Negative (Negative) Urine Glucose (UA) Negative (Negative) Urine Ketones Negative (Negative) Urine Blood Negative (Negative) Urine Nitrite Negative (Negative) Urine Bilirubin Negative (Negative) Urine Urobilinogen <2.0 (<2.0) mg/dL Ur Leukocyte Esterase Negative (Negative) Urine Opiates Screen Not Detected (NotDetected) Ur Oxycodone Screen Not Detected (NotDetected) Urine Methadone Screen Not Detected (NotDetected) Ur Propoxyphene Screen Not Detected (NotDetected) Ur Barbiturates Screen Not Detected (NotDetected) U Tricyclic Antidepress Not Detected (NotDetected) Ur Phencyclidine Scrn Not Detected (NotDetected) Ur Amphetamines Screen Not Detected (NotDetected) U Methamphetamines Scrn Not Detected (NotDetected) U Benzodiazepines Scrn Not Detected (NotDetected) Urine Cocaine Screen Not Detected (NotDetected) U Marijuana (THC) Screen Detected H (NotDetected) Disposition Clinical Impression: Acute anxiety Disposition: HOME SELF-CARE Condition: Good Instructions (If sedation given, give patient instructions): Anxiety (ED) Additional Instructions: Take prescribed medication as directed. Follow-up with a counselor or psychologist. Return to emergency department if symptoms worsen. Prescriptions: ALPRAZolam [Xanax] 1 mg PO DAILY PRN #3 tab PRN Reason: Anxiety Is patient prescribed a controlled substance at d/c from ED?: Yes If prescribed controlled substance>3 days was MAPS reviewed?: Prescribed <3 Days Referrals: Jimmie Hernandez MD [Primary Care Provider] - 1-2 days Time of Disposition: 19:57
[2020-02-12] MEDS ORDERED: ALPRAZolam 0.5 MG TAB PO STA (14:22)
[2020-02-12 14:27] LABS: Appearance,Urine Clear (Clear); Bilirubin,Urine Negative (Negative); Blood,Urine Negative (Negative); Color,Urine Light Yellow; Glucose,Urine (UA) Negative (Negative); Ketones,Urine Negative (Negative); Leukocyte Esterase,Urine Negative (Negative); Nitrite,Urine Negative (Negative); Protein,Urine Negative (Negative); Specific Gravity,Urine 1.003 (1.001-1.035); Urobilinogen,Urine <2.0 mg/dL (<2.0)
[2020-02-12 14:40] LABS: Amphetamine Screen,Urine Not Detected (NotDetected); Barbiturate Screen,Urine Not Detected (NotDetected); Benzodiazepines Screen,Urine Not Detected (NotDetected); Cocaine Screen,Urine Not Detected (NotDetected); Methadone Screen, Urine Not Detected (NotDetected); Opiate Screen,Urine Not Detected (NotDetected); Oxycodone Screen, Urine Not Detected (NotDetected); Phencyclidine Screen,Urine Not Detected (NotDetected); Tricyclic Antidepressant,Urine Not Detected (NotDetected); Urn Cannabinoid Scrn Detected (NotDetected)
[2020-02-12 20:43] VITALS: BP 133/90; PULSE 64; RESP 16; TEMP 98
== END 2020-02-12 20:27 | disposition home or self-care (01) ==
LOC: EC 12:54
DX: F41.9 Anxiety disorder, unspecified (principal); F32.9 Major depressive disorder, single episode, unspecified; F17.200 Nicotine dependence, unspecified, uncomplicated; Z79.899 Other long term (current) drug therapy; Z88.0 Allergy status to penicillin
CPT/HCPCS: 80306; 81003; 82075; 99284

== ENCOUNTER → 2020-05-25 | Outpatient (CLI) | payer OTHER ==
--- NOTE | 2020-05-25 17:07 | CONS ---
CONSULTATION CONSULTATION FOR SLEEP APNEA: A 44-year-old female patient was referred to me for concerns of obstructive sleep apnea. She has been feeling tired and sleepy. Her has noted that the patient is having loud snoring and he says she is quitting breathing at nighttime. She is a [id number] mom. She is extending her sleep hours and she is going to bed around 7 pm, waking up at 7 a.m. in the morning, hoping that spending more time in bed will improve her symptoms and never the less, she has not improved and she continued to be tired and somnolent. Her current Denver score is 11. She is waking up tired. She is having problems with attention, memory and concentration. She is also speaking in her sleep occasionally and she is occasionally waking up in the middle of night gasping for air. She wakes up with a dry mouth. She is known to have COPD. No history of alcoholism. No history of substance abuse. No recent weight gain or weight loss. Occasionally wakes up in the middle of the night with panic. No history of chronic anxiety. No history of depression. PAST MEDICAL HISTORY: COPD and panic attack. PAST SURGICAL HISTORY: None. DRUG ALLERGIES: Not known. OUTPATIENT MEDICATION: Includes albuterol rescue inhaler. SOCIAL HISTORY: Smokes a pack of cigarettes a day. No history of alcoholism. No history of IV drugs. FAMILY HISTORY: Positive for obstructive sleep apnea in her father. REVIEW OF SYSTEMS: A 14-point review of system was done. Negative other than things mentioned above in history of present illness. No sleep paralysis. No hallucinations. No cataplexy. She claims that she is not getting enough sleep. She does not feel refreshed, even if she sleeps 12 hours. No nocturnal heartburn, chest pain, shortness of breath. Occasional nighttime panic. PHYSICAL EXAMINATION: Her current vital signs are as follows, the blood pressure is 113/63, pulse 90, respirations 16, temperature 98.6, saturation 94% on room air. Height is 5, 4, weight is 158 and neck size 12-1/2 inches. BMI 27.1. GENERAL APPEARANCE: Calm, comfortable. HEAD: Atraumatic, normocephalic. NECK: Supple. Mallampati class 3. There is no goiter or neck masses. There is an overbite. LUNGS: Clear to auscultation. HEART: Heart sounds are regular rate and rhythm, normal S1, S2. No S3, S4. No murmurs. ABDOMEN: Soft, nontender. EXTREMITIES: No edema, no cyanosis, or clubbing. NEUROLOGIC: Alert and oriented x3, there are no focal neurological deficits. IMPRESSION: 1. YESSICA clinically suspected, currently under investigation. 2. Chronic hypersomnia Denver score of 11. 3. Loud snoring and witnessed apneas according to the . 4. Chronic episodic panic attacks. 5. COPD. 6. History of smoking. PLAN: The patient needs to restrict the number of hours that she spends in bed. She has extended her sleep hours to an average of 12 hours. However, she is unable to get refreshed. Obviously, there is a problem with her sleep quality. She will need a polysomnogram or a home sleep study to rule out the possibility of obstructive sleep apnea. Meanwhile, I asked her to go to bed around 11 pm or midnight and restrict her sleep hours. Implement good sleep hygiene measures. Treat her comorbidities including COPD. Will make further recommendations based on the results of the sleep study. MMODL / IJN: [id number] /
== END | disposition home or self-care (01) ==
LOC: SLEEP 14:31
PROVIDERS: ATTEND Internal Medicine Critical Care Medicine
DX: G47.33 Obstructive sleep apnea (adult) (pediatric) (principal); G47.10 Hypersomnia, unspecified; F41.0 Panic disorder [episodic paroxysmal anxiety]; J44.9 Chronic obstructive pulmonary disease, unspecified; Z87.891 Personal history of nicotine dependence
CPT/HCPCS: 99211

== ENCOUNTER → 2020-06-04 | Outpatient (CLI) | payer OTHER ==
--- NOTE | 2020-06-14 16:43 | SLS ---
SLEEP STUDY HOME SLEEP STUDY: Reason for study is sleep apnea. PERTINENT HISTORY: This is a 44-year-old female patient with history of COPD who is suspected to also have obstructive sleep apnea based on her history of snoring and chronic fatigue and tiredness. The patient was referred for a home sleep study to be investigated for obstructive sleep apnea. PERTINENT PHYSICAL FINDINGS: Height is 64 inches, weight is 158 and BMI 27.1. TECHNICAL DESCRIPTION: The [employer]-T3 system was used to complete this home sleep study. Total recording duration was 12 hours and 43 minutes. Bedtime started at 8:01 p.m. Bedtime ended at 2:15 a.m., and the total time in bed was 6 hours and 11 minutes. RESULTS: Respiratory count showed a total of 2 obstructive apneas, 4 mixed apneas and 1 obstructive hypopnea, and the resulting apnea-hypopnea index was 1.1. OXYGENATION ANALYSIS: No major desaturations were encountered. There was only one desaturation throughout the sleep study. Average pulse ox was 94% and the patient spent the majority of her sleep time with a pulse ox of above 90%. CARDIAC SUMMARY: Average heart rate was 64. Minimum heart rate was 27. Maximum heart rate was 187. IMPRESSION: 1. Primary snoring; no evidence of any sleep breathing disorder. 2. Chronic obstructive pulmonary disease. 3. Generalized anxiety disorder. 4. History of depression. PLAN: 1. No need for CPAP therapy. 2. Implement good sleep hygiene measures. 3. The patient will be reassured about the results of sleep study that showed no evidence of any sleep breathing disorder. 4. Continue to follow up with Pulmonary. MMODL / IJN: [id number] /
== END | disposition home or self-care (01) ==
LOC: SLEEP 10:59
PROVIDERS: ATTEND Internal Medicine Critical Care Medicine
DX: R06.83 Snoring (principal); J44.9 Chronic obstructive pulmonary disease, unspecified; F41.1 Generalized anxiety disorder; Z86.59 Personal history of other mental and behavioral disorders